=== PATIENT | female | born 1935 | race Two or more races ===

== ENCOUNTER 2021-10-21 14:28 | Inpatient (IN) | payer MEDICARE, BC ==
[~2021-10-21] VITALS: Ht 165.1 cm; Wt 53.5 kg
--- NOTE | 2021-10-21 14:40 | NUR ---
PT ANGELIKA FROM HOME TO ER BED 01. PER EMS, CALLED BECAUSE HE NO LONGER CAN TAKE CARE OF THE PATIENT. STATES PATIENT PROGRESSIVELY GETTING WORST AND WEAK AND NOT ABLE TO EAT ANYTING AND IS NOT GETTING OUT OF BED. PT GOWNED AND PLACED ON MONITOR. STABLE VITALS, AFEBRILE. AWAITING MD LIRIANO.
--- NOTE | 2021-10-21 14:41 | NUR ---
DR BROWNING AT BEDSIDE FOR EVAL.
[2021-10-21] MEDS ORDERED: IV NS 0.9% 1,000 ML BAG IV ONE (15:00)
--- NOTE | 2021-10-21 15:22 | NUR ---
IV LINE STARTED BLOOD DRAWN AND SENT TO LAB.
[2021-10-21 15:26] LABS: BASOPHILS % (AUTO) 0.2 % (0.0-2.0); EOSINOPHILS % (AUTO) 0.5 % (0.0-6.0); HEMATOCRIT 29 % (33-45); HEMOGLOBIN 9.7 g/dL (11.5-14.8); LYMPHOCYTES % (AUTO) 9.1 % (20.0-44.0); MEAN CORPUSCULAR HGB CONC 34 g/dl (31.0-36.0); MEAN CORPUSCULAR VOLUME 97 fL (82-100); MONOCYTES # (AUTO) 0.8 K/uL (0.1-1.30); MONOCYTES % (AUTO) 7.4 % (2.0-12.0); NEUTROPHILS # (AUTO) 8.8 K/uL (1.8-8.9); NEUTROPHILS % (AUTO) 82.8 % (43.0-81.0); PLATELET COUNT (AUTO) 95 K/uL (150-450); RED BLOOD CELL COUNT(AUTO) 2.99 MIL/uL (4.0-5.2); WHITE BLOOD COUNT (AUTO) 10.6 K/uL (4.3-11.0)
--- NOTE | 2021-10-21 15:29 | NUR ---
RADIOLOGY AT BEDSIDE FOR CHEST XRAY
[2021-10-21 15:50] LABS: CALCIUM, SERUM 8.3 mg/dL (8.5-10.1); CARBON DIOXIDE 19 mmol/L (21-32); CHLORIDE 112 mmol/L (98-107); CREATININE 1.7 mg/dL (0.6-1.3); GLUCOSE 81 mg/dL (74-106); POTASSIUM 4.6 mmol/L (3.5-5.1); SODIUM SERUM 142 mmol/L (136-145); UREA NITROGEN, BLOOD 33 mg/dL (7-18)
[2021-10-21 15:51] LABS: BILIRUBIN,URINE Negative (NEGATIVE); COLOR,URINE YELLOW (YELLOW); LEUKOCYTE ESTERASE ,URINE Negative (NEGATIVE); NITRITE, URINE Negative (NEGATIVE); PROTEIN,URINE Trace mg/dl (NEGATIVE); UGLUCOSE Negative (NEGATIVE); UROBILINOGEN,URINE 0.2 EU/dL (0.2)
[2021-10-21] MEDS ORDERED: AMLO2.5T2 PO (15:53)
[2021-10-21] MEDS ORDERED: LEVO50TA8 PO (15:53)
[2021-10-21] MEDS ORDERED: ATOR10TA PO (15:53)
[2021-10-21] MEDS ORDERED: DONE5TAB7 PO (15:53)
[2021-10-21 15:55] LABS: ALANINE AMINOTRANSFERASE 43 U/L (12-78); ALBUMIN 2.5 g/dL (3.4-5.0); ALKALINE PHOSPHATASE 88 U/L (46-116); ASPARTATE AMINOTRANSFERASE 60 U/L (15-37); BILIRUBIN,DIRECT 0.1 mg/dL (0.0-0.2); BILIRUBIN,TOTAL 0.1 mg/dL (0.2-1.0); TOTAL PROTEIN, SERUM 5.6 g/dL (6.4-8.2)
[2021-10-21 15:57] LABS: BACTERIA,URINE Rare /HPF (None Seen); SQUAMOUS EPITHELIAL CELL,UR Few /HPF (None Seen); WBC,URINE NONE SEEN /HPF (0-3)
[2021-10-21 16:26] LABS: LYMPHOCYTES % (MANUAL) 10 % (16-48); MONOCYTES % (MANUAL) 6 % (0-11.0); NEUTROPHILS % (MANUAL) 84 (42-76)
--- NOTE | 2021-10-21 16:56 | NUR ---
[facility] CALLED SUPERVISOR SALVAGE PAGED.
[2021-10-21] MEDS ORDERED: ASPI-1169 PO (17:00)
[2021-10-21] MEDS ORDERED: OLME20TA13 PO (17:00)
[2021-10-21] MEDS ORDERED: VIT1CAPS44 PO (17:00)
[2021-10-21] MEDS ORDERED: OMEG-167 PO (17:00)
[2021-10-21] MEDS ORDERED: FOLI0.8C PO (17:00)
[2021-10-21] MEDS ORDERED: ASCO-352 PO (17:00)
--- NOTE | 2021-10-21 19:26 | NUR ---
MS BED: 328-1
--- NOTE | 2021-10-21 19:46 | NUR ---
report given to teresa Santoro).
[2021-10-21 20:50] VITALS: BP 122/68
--- NOTE | 2021-10-21 20:50 | NUR ---
RN ADMITTING NOTE PATIENT IS A/O X 2-3, TO PERSON, PLACE, SITUATION, WITH PERIODS OF CONFUSION AND FORGETFULNESS. NEEDS REMINDERS AND REORIENTATION AT TIMES. PATIENT HAS HX OF DEMENTIA. PATIENT HAS MODERATE WEAKNESS ON BOTH UPPER AND LOWER EXTREMITIES UPON ASSESSMENT, PT STATES THAT SHE WALKS WITH HER AT HOME. PATIENT IS STABLE ON RA, TOLERATING WELL. PATIENT STATES HER BIRTHDAY IS [birth year], ID STATES 1935. WILL CONFIRM WITH . HX, ADMISSION INFO, AND HOME MEDS OBTAINED FROM [facility]. CONFIRMED PT'S BIRTHDAY. PATIENT DOES NOT REPORT ANY PAIN AT THIS TIME. SKIN ASSESSMENT COMPLETED AND DOCUMENTED. PATIENT HAS A LAC 20 G, PATENT AND INTACT. ORIENTED PATIENT TO ROOM, RN, AND STEAM POWER PLANT OPERATOR. SAFETY MEASURES IN PLACE: BED LOCKED AND IN LOWEST POSITION, CALL LIGHT WITHIN REACH, SIDE RAILS UP. WILL MONITOR PATIENT CLOSELY. [facility] HUIZAR () >PHONE: [phone]//HOME PHONE: [phone]
[2021-10-21] MEDS ORDERED: MAGNESIUM HYDROXIDE 30 ML UDC PO PRN (22:00)
[2021-10-21] MEDS ORDERED: ONDANSETRON HCL/PF 4 MG/2 ML VIAL IVP PRN (22:00)
[2021-10-21] MEDS: ENOXAPARIN SODIUM 30 MG/0.3 ML DISP.SYRIN SQ SCH (23:04)
--- NOTE | 2021-10-22 06:50 | NUR ---
RN CLOSING NOTE PATIENT A/O X 1 AT THIS TIME. PATIENT HAS HX DEMENTIA. PATIENT IS NOT OBSERVED AND DOES NOT REPORT TO BE IN ANY PAIN. PATIENT IS ON RA, TOLERATING WELL. PATIENT HAS A LAC 20G SALINE LOCKED ONLY. PATIENT PASSED NURSING SWALLOW EVAL COMPLETED UPON ADMISSION. SAFETY MEASURES IMPLEMENTED. ALL NEEDS MET AND ATTENDED. ALL ORDERS CARRIED OUT. WILL ENDORSE TO DAY SHIFT NURSE FOR SEMAJ.
[2021-10-22 07:19] LABS: BASOPHILS % (AUTO) 0.2 % (0.0-2.0); EOSINOPHILS % (AUTO) 0.5 % (0.0-6.0); HEMATOCRIT 26 % (33-45); LYMPHOCYTES % (AUTO) 10.5 % (20.0-44.0); MEAN CORPUSCULAR HGB CONC 35 g/dl (31.0-36.0); MEAN CORPUSCULAR VOLUME 97 fL (82-100); MONOCYTES # (AUTO) 0.9 K/uL (0.1-1.30); MONOCYTES % (AUTO) 9.5 % (2.0-12.0); NEUTROPHILS # (AUTO) 7.7 K/uL (1.8-8.9); NEUTROPHILS % (AUTO) 79.3 % (43.0-81.0); PLATELET COUNT (AUTO) 95 K/uL (150-450); RED BLOOD CELL COUNT(AUTO) 2.71 MIL/uL (4.0-5.2); WHITE BLOOD COUNT (AUTO) 9.7 K/uL (4.3-11.0)
[2021-10-22 07:34] LABS: CALCIUM, SERUM 7.9 mg/dL (8.5-10.1); CARBON DIOXIDE 16 mmol/L (21-32); CHLORIDE 113 mmol/L (98-107); CREATININE 1.6 mg/dL (0.6-1.3); GLUCOSE 58 mg/dL (74-106); MAGNESIUM 1.9 mg/dL (1.8-2.4); PHOSPHORUS 4.1 mg/dL (2.5-4.9); POTASSIUM 4.1 mmol/L (3.5-5.1); SODIUM SERUM 140 mmol/L (136-145); UREA NITROGEN, BLOOD 29 mg/dL (7-18)
[2021-10-22 07:45] LABS: CHOLESTEROL 86 mg/dL (<200); HDL CHOLESTEROL 34 mg/dL (40-60); LDL 41 mg/dL (0-99); TRIGLYCERIDES 33 mg/dL (30-150)
[2021-10-22] MEDS ORDERED: VITA1TAB56 PO (07:46)
[2021-10-22] MEDS ORDERED: CHOL100062 PO (07:46)
--- NOTE | 2021-10-22 07:46 | NUR ---
MS RN OPENING NOTES RECEIVED PATIENT IN BED, AWAKE, A/O X1. PATIENT ON ROOM AIR; BREATHING EVEN AND UNLABORED; NO SOB NOTED. NO COMPLAINS OF PAIN AT THIS TIME. IV ACCESS AT LAC G #20 SL. SAFETY PRECAUTIONS IN PLACE; BED IN LOW POSITION AND LOCKED, RAILS UP X2, CALL LIGHT WITHIN REACH. WILL CONTINUE TO MONITOR PATIENT.
--- NOTE | 2021-10-22 07:48 | NUR ---
MS RN NOTES ACCORDING TO AM LABS PATIENT WITH LOW GLUCOSE LEVEL. ACCU-CHECK DONE TO VERIFY; BS 59. FED PATIENT BREAKFAST AND GAVE SOME ORANGE JUICE. WILL RECHECK LATER.
[2021-10-22 08:00] VITALS: BP 133/66
--- NOTE | 2021-10-22 08:35 | NUR ---
MS RN NOTES ACCU-CHECK DONE; BS 85
--- NOTE | 2021-10-22 09:09 | NUR ---
WOUND CARE CONSULT: PT REFUSED SKIN ASSESSMENT. RECOMMENDATIONS MADE FOR SKIN PROTECTION. DISCUSSED WITH NURSING STAFF. PT IS ON [facility] LOW AIRLOSS BED. MD IN AGREEMENT WITH PLAN OF CARE.
[2021-10-22] MEDS ORDERED: Z GUARD REMEDY 2 OZ OINT TP PRN (09:30)
[2021-10-22] MEDS: Z GUARD REMEDY 2 OZ OINT TP SCH (09:40)
--- NOTE | 2021-10-22 13:44 | NUR ---
MS RN NOTES DVT PUMPS APPLIED
[2021-10-22 16:00] VITALS: BP 121/54
[2021-10-22] MEDS ORDERED: IV NS 0.9% 1,000 ML IV SCH (16:30)
[2021-10-22] MEDS: IV D5/ 0.9% NACL 1,000 ML IV PRN (17:29)
--- NOTE | 2021-10-22 18:48 | NUR ---
MS RN CLOSING NOTES PATIENT REMAINS IN BED, AWAKE, A/O X1. PATIENT ON ROOM AIR; BREATHING EVEN AND UNLABORED; NO SOB NOTED. NO COMPLAINS OF PAIN DURING SHIFT. IV ACCESS AT LAC G #20 RUNNING D5 NS @ 75 MLS/HR. ALL NEEDS ATTENDED DURING THE DAY. SAFETY PRECAUTIONS IN PLACE; BED IN LOW POSITION AND LOCKED, RAILS UP X2, CALL LIGHT WITHIN REACH. WILL ENDORSE TO MOUNTER SMOKING PIPE NURSE FOR SEMAJ.
--- NOTE | 2021-10-22 19:30 | NUR ---
RN CLOSING NOTE PATIENT A/O X 2 AT THIS TIME. PATIENT HAS HX DEMENTIA. PATIENT ABLE TO ANSWER WITH YES OR NO AND ABLE TO FOLLOW SIMPLE COMMANDS. PATIENT IS NOT OBSERVED AND DOES NOT REPORT TO BE IN ANY PAIN. PATIENT IS ON RA, TOLERATING WELL, NOT IN ANY APPARENT DISTRESS, NO SOB. PATIENT HAS A LAC 20G WITH D5 NS RUNNING AT 100 ML/HR. HOB ELEVATED FOR ASPIRATION PRECAUTION. SAFETY MEASURES IN PLACE: ALL NEEDS MET AND ATTENDED, ALL ORDERS CARRIED OUT. WILL MONITOR PATIENT CLOSELY. Addendum: 10/22/21 at 2301 by LEXII BELLAMY RN OPENING NOTE
[2021-10-22 20:00] VITALS: BP 118/70
[2021-10-22] MEDS: ENOXAPARIN SODIUM 30 MG/0.3 ML DISP.SYRIN SQ SCH (21:21)
--- NOTE | 2021-10-22 23:01 | NUR ---
[facility] TREASURER NOTE CARE OF PT TRANSFERRED TO NOVEM RN. PATIENT STABLE, NOT IN ANY APPARENT DISTRESS.
[2021-10-23] MEDS: IV D5/ 0.9% NACL 1,000 ML IV PRN ×2 (04:48→22:36)
--- NOTE | 2021-10-23 06:23 | NUR ---
RN CLOSING NOTE PATIENT IN BED ASLEEP. AROUSES EASILY. PATIENT IS ALERT AND ORIENTED X2. IN NO APPARENT DISTRESS NOTED. PATIENT IS ABLE TO FOLLOW SIMPLE COMMANDS. ON ROOM AIR TOLERATING WELL. NO COMPLAINTS OF PAIN OR DISCOMFORT AT THIS TIME. IV ACCESS ON LAC 20G WITH D5 NS RUNNING AT 100 ML/HR. HOB ELEVATED FOR ASPIRATION PRECAUTIONS. SAFETY MEASURES IN PLACE. ALL NEEDS MET AND ATTENDED. WILL ENDORSE TO AM SHIFT NURSE FOR CONTINUITY OF CARE.
[2021-10-23 06:53] LABS: BASOPHILS % (AUTO) 0.2 % (0.0-2.0); EOSINOPHILS % (AUTO) 0.5 % (0.0-6.0); HEMATOCRIT 27 % (33-45); HEMOGLOBIN 8.9 g/dL (11.5-14.8); LYMPHOCYTES % (AUTO) 10.2 % (20.0-44.0); MEAN CORPUSCULAR HGB CONC 34 g/dl (31.0-36.0); MEAN CORPUSCULAR VOLUME 98 fL (82-100); MONOCYTES # (AUTO) 1.5 K/uL (0.1-1.30); MONOCYTES % (AUTO) 14.8 % (2.0-12.0); NEUTROPHILS # (AUTO) 7.6 K/uL (1.8-8.9); NEUTROPHILS % (AUTO) 74.3 % (43.0-81.0); PLATELET COUNT (AUTO) 105 K/uL (150-450); RED BLOOD CELL COUNT(AUTO) 2.71 MIL/uL (4.0-5.2); WHITE BLOOD COUNT (AUTO) 10.2 K/uL (4.3-11.0)
--- NOTE | 2021-10-23 07:30 | NUR ---
RN MS NOTES PT IN BED, ALERT TO SELF, WITH PERIODS OF CONFUSION, NO SIGN OF PAIN OR DISTRESS, CALL LIGHT WITHIN REACH, ASSISTED WITH MEALS, KEEP COMFORTABLE IN BED.
[2021-10-23 07:32] LABS: CALCIUM, SERUM 8.1 mg/dL (8.5-10.1); CARBON DIOXIDE 16 mmol/L (21-32); CHLORIDE 114 mmol/L (98-107); CREATININE 1.7 mg/dL (0.6-1.3); GLUCOSE 74 mg/dL (74-106); POTASSIUM 3.6 mmol/L (3.5-5.1); SODIUM SERUM 141 mmol/L (136-145); UREA NITROGEN, BLOOD 30 mg/dL (7-18)
[2021-10-23 08:00] VITALS: BP 124/97
[2021-10-23] MEDS: Z GUARD REMEDY 2 OZ OINT TP SCH (09:17)
--- NOTE | 2021-10-23 11:24 | NUR ---
RN MS NOTES PT SEEN AND EXAMINED BY DR. ZAVALA, PLAN OF CARE DISCUSSED BY AT BEDSIDE, IV FLUIDS INFUSING WELL, KEPT WARM AND COMFORTABLE.
[2021-10-23] MEDS: ENSURE ENLIVE 237 ML LIQUID (VANILLA) PO SCH ×2 (13:53→17:13)
[2021-10-23 16:00] VITALS: BP 118/64
[2021-10-23] MEDS: MULTIVITAMIN/LUTEIN/MINERALS 1 TAB PO SCH (17:04)
[2021-10-23] MEDS: DONEPEZIL 5 MG TABLET PO SCH (17:04)
[2021-10-23] MEDS: ASCORBIC ACID 500 MG TABLET PO SCH (17:04)
[2021-10-23] MEDS: ATORVASTATIN 10 MG TABLET PO SCH (17:04)
[2021-10-23] MEDS: VITAMIN B COMP W-C 1 TAB TABLET PO SCH (17:04)
--- NOTE | 2021-10-23 18:13 | NUR ---
RN MS NOTES PT IN BED, RESTING, ALERT TO SELF, WITH PERIODS OF CONFUSION AND BEING FORGETFUL, NEEDS ENCOURAGEMENT TO INCREASE PO INTAKE, ASSISTED WITH MEALS, STILL WITH POOR PO INTAKE, IV FLUIDS INFUSING WELL, CALL LIGHT WITHIN REACH, BOAZ INFORMED OF PLAN OF CARE, VERBALIZED UNDERSTANDING, PM MEDS GIVEN ORDERED, RECEIVED ORDER FROM DR. ZAVALA TO CHECK BLOOD SUGAR ACHS AND TO GIVE D50/50 IVP PRN. BS CHECKED, 68, PT ABLE TO SWALLOW A COUPLE OF SPOONS OF PUDDING AND A SIP OF ENSURE.
--- NOTE | 2021-10-23 19:40 | NUR ---
MS RN OPENING NOTE PATIENT SLEEPING IN BED BUT EASILY AWAKENED, ALERT/ORIENTED X 2 WITH PERIODS OF CONFUSION. PATIENT STABLE ON RA, NO S/S OF DISTRESS OR SOB NOTED, BREATHING EVEN AND UNLABORED. PT REPORTS ONLY MILD PAIN AT THIS TIME. IV ACCESS ON LEFT AC #20G INTACT AND RUNNING D5NS @ 90 ML/HR. WILL ENCOURAGE PO INTAKE DURING SHIFT. SAFETY MEASURES IN PLACE: CALL LIGHT WITHIN REACH, SIDE RAILS UP X 3, BED LOCKED IN LOW POSITION, HOB ELEVATED, BED ALARM ON. WILL CONTINUE TO MONITOR PATIENT
[2021-10-23 20:16] VITALS: BP 127/62
[2021-10-23] MEDS: BLOOD SUGAR DIAGNOSTIC 1 EACH STRIP IN SCH (21:33)
[2021-10-23] MEDS: MIRTAZAPINE 15 MG TABLET PO SCH (21:38)
[2021-10-23] MEDS: AMLODIPINE BESYLATE 5 MG TABLET PO SCH (21:38)
[2021-10-23] MEDS: ENOXAPARIN SODIUM 30 MG/0.3 ML DISP.SYRIN SQ SCH (21:38)
[2021-10-24] MEDS: BLOOD SUGAR DIAGNOSTIC 1 EACH STRIP IN SCH ×4 (06:49→23:13)
--- NOTE | 2021-10-24 06:59 | NUR ---
MS RN CLOSING NOTE PATIENT SLEEPING IN BED BUT EASILY AWAKENED, ALERT/ORIENTED X 2 WITH PERIODS OF CONFUSION. PATIENT STABLE ON RA, NO S/S OF DISTRESS OR SOB NOTED, BREATHING EVEN AND UNLABORED. PT REFUSED PO INTAKE, ONLY TOOK SMALL BITE OF PUDDING AND KEPT SHAKING HER HEAD NO. MEDICATIONS GIVEN ORDERED, PT NEEDS MET THROUGHOUT SHIFT. IV ACCESS ON LEFT AC #20G INTACT AND RUNNING D5NS @ 90 ML/HR. SAFETY MEASURES IN PLACE: CALL LIGHT WITHIN REACH, SIDE RAILS UP X 3, BED LOCKED IN LOW POSITION, HOB ELEVATED, BED ALARM ON. WILL ENDORSE TO DAY SHIFT NURSE FOR CONTINUITY OF CARE
[2021-10-24] MEDS: LEVOTHYROXINE SODIUM 88 MCG TABLET PO SCH (07:30)
--- NOTE | 2021-10-24 07:56 | NUR ---
RN note Patient received in bed, AO x 1-2, able to responds all stimuli. Skin is warm to touch, keep clean/dry. Patient does no c/o pain or discomfort at this time. Patient able to reposition self. Respiratory even and unlabored on room air, no SOB observed. Noted patient does not able to swallow due med this morning, will notify MD and place ST eval. Call light within reach, kept elevated HOB and lower bed position for safety. Will continue to monitor.
[2021-10-24] MEDS: ENSURE ENLIVE 237 ML LIQUID (VANILLA) PO SCH ×3 (08:00→17:27)
[2021-10-24 08:23] VITALS: BP 135/68
[2021-10-24 08:50] LABS: BASOPHILS % (AUTO) 0.3 % (0.0-2.0); EOSINOPHILS % (AUTO) 0.5 % (0.0-6.0); HEMATOCRIT 26 % (33-45); HEMOGLOBIN 8.7 g/dL (11.5-14.8); LYMPHOCYTES # (AUTO) 1.6 K/uL (0.8-4.8); LYMPHOCYTES % (AUTO) 14.9 % (20.0-44.0); MEAN CORPUSCULAR HGB CONC 33 g/dl (31.0-36.0); MEAN CORPUSCULAR VOLUME 98 fL (82-100); MONOCYTES # (AUTO) 2.5 K/uL (0.1-1.30); MONOCYTES % (AUTO) 23.8 % (2.0-12.0); NEUTROPHILS # (AUTO) 6.5 K/uL (1.8-8.9); NEUTROPHILS % (AUTO) 60.5 % (43.0-81.0); PLATELET COUNT (AUTO) 126 K/uL (150-450); RED BLOOD CELL COUNT(AUTO) 2.68 MIL/uL (4.0-5.2); WHITE BLOOD COUNT (AUTO) 10.7 K/uL (4.3-11.0)
--- NOTE | 2021-10-24 08:56 | NUR ---
Patient noticed difficulty swallow med, received order ST eval. Will continue to monitor for safety.
[2021-10-24] MEDS: FOLIC ACID 1 MG TABLET PO SCH (09:00)
[2021-10-24] MEDS ORDERED: Medication Not On Formulary EA (Omega-3 Fatty Acids/Fish Oil (Fish Oil 1,000 Mg Softgel) PO SCH (09:00)
[2021-10-24] MEDS: CHOLECALCIFEROL 1,000 UNIT TABLET (VIT D3) PO SCH (09:00)
[2021-10-24] MEDS: ASCORBIC ACID 500 MG TABLET PO SCH ×2 (09:00→16:47)
[2021-10-24] MEDS: ASPIRIN 81 MG TAB.CHEW PO SCH (09:00)
[2021-10-24] MEDS: Z GUARD REMEDY 2 OZ OINT TP SCH (09:00)
[2021-10-24] MEDS: MULTIVITAMIN/LUTEIN/MINERALS 1 TAB PO SCH ×2 (09:00→16:47)
[2021-10-24 10:05] LABS: CALCIUM, SERUM 7.5 mg/dL (8.5-10.1); CARBON DIOXIDE 16 mmol/L (21-32); CHLORIDE 119 mmol/L (98-107); CREATININE 1.6 mg/dL (0.6-1.3); GLUCOSE 62 mg/dL (74-106); POTASSIUM 4.1 mmol/L (3.5-5.1); SODIUM SERUM 146 mmol/L (136-145); UREA NITROGEN, BLOOD 27 mg/dL (7-18)
[2021-10-24] MEDS: ACETAMINOPHEN 325 MG TABLET PO PRN (10:32)
--- NOTE | 2021-10-24 11:00 | NUR ---
Patient done ST kiel and failed, will hold foods and meds for today. ST dyson will repeat tomorrow again.
--- NOTE | 2021-10-24 11:44 | NUR ---
does not feeling comfortable to d/c SNF due to patient's condition, informed MD regarding above.
[2021-10-24] MEDS ORDERED: DEXTROSE 50%-WATER 50 ML DISP.SYRIN ONE (12:29)
--- NOTE | 2021-10-24 12:38 | NUR ---
Patient lethargic condition, does not awake, and started npo. BS; 59mg/dl, administered Dextrose.
[2021-10-24] MEDS: IV D5/ 0.9% NACL 1,000 ML IV PRN (12:54)
[2021-10-24 16:26] VITALS: BP 124/52
[2021-10-24] MEDS: DONEPEZIL 5 MG TABLET PO SCH (17:26)
[2021-10-24] MEDS: VITAMIN B COMP W-C 1 TAB TABLET PO SCH (17:27)
[2021-10-24] MEDS: ATORVASTATIN 10 MG TABLET PO SCH (17:27)
--- NOTE | 2021-10-24 18:16 | NUR ---
RN Closing Note Patient resting in bed, AO x 1. Respiratory even and unabashed on room air. Does no appears pain or discomfort. Skin is warm to touch, keep clean/dry, intact new IV site on right forearm. The latest BS;75mg/dl, keep running D5 NS at 90ml. Kept elevated HOB for airway and lower position of the bed for safety. Call light within reach, all needs met. will endorse night custodian.
[2021-10-24 20:00] VITALS: BP 118/62
--- NOTE | 2021-10-24 20:29 | NUR ---
MS RN OPENING NOTE PATIENT SLEEPING IN BED, ONLY GROANS WHEN ATTEMPTED TO WAKE UP BUT DOESN'T OPEN EYES, ALERT/ORIENTED X 1. PATIENT APPEARS COMFORTABLE AND NO S/S OF PAIN, NO FACIAL GRIMACING OR RESTLESSNESS. PATIENT STABLE ON RA, NO S/S OF DISTRESS OR SOB NOTED, BREATHING EVEN AND UNLABORED. IV ACCESS ON RIGHT WRIST #24G INTACT AND RUNNING D5NS @ 90 ML/HR. PER DAY SHIFT NURSE, PT FAILED ST LIRIANO AND WILL BE NPO TODAY. SAFETY MEASURES IN PLACE: CALL LIGHT WITHIN REACH, SIDE RAILS UP X 3, BED LOCKED IN LOW POSITION, HOB ELEVATED, BED ALARM ON. WILL CONTINUE TO MONITOR PATIENT
[2021-10-24] MEDS ORDERED: DEXTROSE 50%-WATER 50 ML DISP.SYRIN IVP PRN (22:00)
[2021-10-24] MEDS: AMLODIPINE BESYLATE 5 MG TABLET PO SCH (22:00)
[2021-10-24] MEDS: MIRTAZAPINE 15 MG TABLET PO SCH (22:00)
[2021-10-24] MEDS: IV D5/0.45 NACL 1,000 ML IV SCH (23:10)
[2021-10-24] MEDS: ENOXAPARIN SODIUM 30 MG/0.3 ML DISP.SYRIN SQ SCH (23:14)
--- NOTE | 2021-10-25 02:09 | NUR ---
MS RN NOTE REASSESSED PATIENT'S BLOOD SUGAR, CURRENTLY 79. IVF D51/2 NS STILL RUNNING @ 70 ML/HR. PATIENT NPO D/T FAILING SWALLOW EVAL. PATIENT MORE ALERT NOW THAN EARLIER IN THE SHIFT. ASKED PATIENT IF SHE WAS IN PAIN AND SHE SAID NO, ASKED PATIENT IF SHE FELT OKAY AND SHE RESPONDED YES
[2021-10-25] MEDS: BLOOD SUGAR DIAGNOSTIC 1 EACH STRIP IN SCH ×4 (07:03→22:00)
[2021-10-25] MEDS: LEVOTHYROXINE SODIUM 88 MCG TABLET PO SCH (07:30)
--- NOTE | 2021-10-25 07:32 | NUR ---
RN Note Patient received in bed, AO x 1, able to responds all stimuli. Respiratory even and unlabored on room air, no SOB observed. Skin is warm to touch, keep clean/dry. Patient does no appears pain or discomfort this morning. BS 70mg/dl this morning also. Call light within reach, kept elevated HOB and lower bed position for safety. Will continue to monitor.
--- NOTE | 2021-10-25 07:34 | NUR ---
MS RN OPENING NOTE PATIENT SLEEPING IN BED, ALERT/ORIENTED X 1, PT MORE ALERT AND ANSWERING YES/NO QUESTIONS. PATIENT APPEARS COMFORTABLE AND NO S/S OF PAIN, NO FACIAL GRIMACING OR RESTLESSNESS. PATIENT STABLE ON RA, NO S/S OF DISTRESS OR SOB NOTED, BREATHING EVEN AND UNLABORED. IV ACCESS ON RIGHT WRIST #24G INTACT AND RUNNING D5 1/2NS @ 70 ML/HR. PATIENT KEPT NPO. NO SIGNIFICANT CHANGES THROUGHOUT SHIFT. SAFETY MEASURES IN PLACE: CALL LIGHT WITHIN REACH, SIDE RAILS UP X 3, BED LOCKED IN LOW POSITION, HOB ELEVATED, BED ALARM ON. ENDORSED TO DAY SHIFT NURSE FOR CONTINUITY OF CARE
[2021-10-25 07:58] LABS: BASOPHILS % (AUTO) 0.5 % (0.0-2.0); EOSINOPHILS % (AUTO) 1.6 % (0.0-6.0); HEMATOCRIT 25 % (33-45); LYMPHOCYTES # (AUTO) 1.3 K/uL (0.8-4.8); LYMPHOCYTES % (AUTO) 15.2 % (20.0-44.0); MEAN CORPUSCULAR HGB CONC 33 g/dl (31.0-36.0); MEAN CORPUSCULAR VOLUME 98 fL (82-100); MONOCYTES # (AUTO) 1.6 K/uL (0.1-1.30); MONOCYTES % (AUTO) 18.6 % (2.0-12.0); NEUTROPHILS # (AUTO) 5.6 K/uL (1.8-8.9); NEUTROPHILS % (AUTO) 64.1 % (43.0-81.0); PLATELET COUNT (AUTO) 140 K/uL (150-450); WHITE BLOOD COUNT (AUTO) 8.7 K/uL (4.3-11.0)
[2021-10-25] MEDS: ENSURE ENLIVE 237 ML LIQUID (VANILLA) PO SCH ×3 (08:00→17:09)
[2021-10-25 08:04] LABS: CARBON DIOXIDE 16 mmol/L (21-32); CHLORIDE 118 mmol/L (98-107); CREATININE 1.7 mg/dL (0.6-1.3); GLUCOSE 83 mg/dL (74-106); POTASSIUM 3.4 mmol/L (3.5-5.1); SODIUM SERUM 144 mmol/L (136-145); UREA NITROGEN, BLOOD 27 mg/dL (7-18)
[2021-10-25 08:22] VITALS: BP 146/81
[2021-10-25] MEDS: ASCORBIC ACID 500 MG TABLET PO SCH ×2 (09:00→17:08)
[2021-10-25] MEDS: FOLIC ACID 1 MG TABLET PO SCH (09:00)
[2021-10-25] MEDS: MULTIVITAMIN/LUTEIN/MINERALS 1 TAB PO SCH ×2 (09:00→17:08)
[2021-10-25] MEDS: ASPIRIN 81 MG TAB.CHEW PO SCH (09:00)
[2021-10-25] MEDS: CHOLECALCIFEROL 1,000 UNIT TABLET (VIT D3) PO SCH (09:00)
[2021-10-25] MEDS: IV D5/0.45 NACL 1,000 ML IV SCH (09:12)
[2021-10-25] MEDS: Z GUARD REMEDY 2 OZ OINT TP SCH (09:21)
[2021-10-25] MEDS ORDERED: POTASSIUM CHLORIDE 20 MEQ TAB.PRT.SR PO SCH (11:00)
[2021-10-25 11:04] LABS: EOSINOPHILS % (MANUAL) 1 % (0-4); LYMPHOCYTES % (MANUAL) 13 % (16-48); MONOCYTES % (MANUAL) 14 % (0-11.0); NEUTROPHILS % (MANUAL) 72 (42-76)
[2021-10-25] MEDS ORDERED: JEVITY 1.2 CAL 1,000 ML BOTTLE GT PRN (11:30)
--- NOTE | 2021-10-25 12:00 | NUR ---
Patient failed ST eval today, new order NG tube. Conformed NG tube placement by chest xray. Patient has on left nare 16 fr. Kept elevated HOB for aspiration precaution. Will continue to monitor closely.
[2021-10-25] MEDS ORDERED: POTASSIUM CHLORIDE 20 MEQ POWDER PACKET GT SCH (14:00)
--- NOTE | 2021-10-25 14:29 | NUR ---
potassium given at 1400 via NG tube.
[2021-10-25 16:22] VITALS: BP 137/62
[2021-10-25] MEDS: DORZOLAMIDE OPTH 2% 10 ML BOTTLE EACHEYE SCH (17:08)
[2021-10-25] MEDS: VITAMIN B COMP W-C 1 TAB TABLET PO SCH (17:08)
[2021-10-25] MEDS: DONEPEZIL 5 MG TABLET PO SCH (17:08)
[2021-10-25] MEDS: ATORVASTATIN 10 MG TABLET PO SCH (17:08)
--- NOTE | 2021-10-25 17:56 | NUR ---
RN Closing Note Patient resting in bed, AO x 1. Respiratory even and unlabored on room air. Does no appears pain or discomfort. Skin is warm to touch, keep clean/dry, intact new IV site on right forearm. The latest BS;75mg/dl, keep running D5 NS at 70ml, tube feeding at 30cc currently and patient tolerated. Kept elevated HOB for airway and lower position of the bed for safety. Call light within reach, all needs met. will endorse night shift manager.
[2021-10-25 20:00] VITALS: BP 131/60
--- NOTE | 2021-10-25 20:31 | NUR ---
MS RN OPENING NOTES: RECEIVED PATIENT SLEEP IN BED COMFORTABLY, BED IN LOW POSITION, CALL LIGHTS WITHIN REACH, NO COMPLAIN OF PAIN AND DISCOMFORT AT THIS TIME, A/O X1 INCONTINENT, NGT TUBE JEVITY 1.2 AT 45ML CC PER HOUR, , I WITH IV LINE AT RT WRIST #24 D5 1/2 NSS@70ML PER HOUR INFUSING WELL. PATIENT HOB AT 45 DEGREE, PATIENT KEPT CLEAN AND DRY ALL NEEDS MET, WILL CONTINUE TO MONITOR.
[2021-10-25] MEDS: ENOXAPARIN SODIUM 30 MG/0.3 ML DISP.SYRIN SQ SCH (21:58)
[2021-10-25] MEDS: MIRTAZAPINE 15 MG TABLET PO SCH (22:39)
[2021-10-25] MEDS: AMLODIPINE BESYLATE 5 MG TABLET PO SCH (22:39)
--- NOTE | 2021-10-25 22:46 | NUR ---
RN NOTES: BS-[id number] - OUT OF PARANETER NO INSULIN GIVEN PER SLIDING SCALE
[2021-10-26] MEDS: SODIUM BICARBONATE 650 MG TABLET PEG SCH ×3 (00:42→17:00)
[2021-10-26] MEDS: IV D5/0.45 NACL 1,000 ML IV SCH (01:49)
--- NOTE | 2021-10-26 07:00 | NUR ---
RN NOTES: SPOKE TO BOAZ HUIZAR, OF PATIENT SAVI HUIZAR BECAUSE OF THE POSSIBLE ESOPHAGOGASTRODUODENOSCOPY (EGD AND ASKED FOR A CONSENT ON THE PROCEDURE, CONSENT FOR ANESTHESIA, CONSENT FOR BLOOD TRANSFUSION IF NEEDED AND HE GAVE AN APPROVAL OF THE CONSENT, HE SPOKE TO JO ANN MOYER WITNESS, PAPERS ARE SIGNED AND ENDORSE TO INCOMING NURSE
--- NOTE | 2021-10-26 07:35 | NUR ---
MS RN OPENING NOTES PATIENT ASLEEP IN BED, NO SIGNS OF ACUTE DISTRESS NOTED. ON ROOM AIR, TOLERATING WELL., NO SOB NOTED. NO S/SX OF PAIN AND DISCOMFORT AT THIS TIME. PATIENT ON NPO, DUE TO EGD SCHEDULE. WITH IV ACCESS ON R WRIST#24 INTACT, WITH ONGOING D5 1/2 NS @70ML/HR INFUSING WELL. ASPIRATION PRECAUTION OBSERVED, HOB ELEVATED AT 45 DEGREE. WILL CONTINUE TO MONITOR PATIENT.
[2021-10-26] MEDS: BLOOD SUGAR DIAGNOSTIC 1 EACH STRIP IN SCH ×4 (07:38→21:39)
--- NOTE | 2021-10-26 07:44 | NUR ---
RN CLOSING NOTES: PATIENT SLEEP IN BED COMFORTABLY, BED IN LOW POSITION, CALL LIGHTS WITHIN REACH, NO COMPLAIN OF PAIN AND DISCOMFORT AT THIS TIME, PATIENT ON NPO, DUE TO EGD SCHEDULE ON ROOM AIR, NO RESP DISTRESS WAS OBSERVED, WITH IV LINE AT L WRIST#24 WITH ONGOING D5 1/2 NSS@70ML/HR INFUSING WELL, HOB AT 45 DEGREE, PATIENT KEPT CLEAN AND DRY, ALL NEEDS MET ENDORSE TO INCOMING SHIFT.:
[2021-10-26] MEDS: ENSURE ENLIVE 237 ML LIQUID (VANILLA) PO SCH ×3 (08:00→18:00)
[2021-10-26] MEDS: MULTIVITAMIN/LUTEIN/MINERALS 1 TAB PO SCH ×2 (08:09→17:00)
[2021-10-26] MEDS: LEVOTHYROXINE SODIUM 88 MCG TABLET PO SCH (08:09)
[2021-10-26] MEDS: FOLIC ACID 1 MG TABLET PO SCH (08:09)
[2021-10-26] MEDS: CHOLECALCIFEROL 1,000 UNIT TABLET (VIT D3) PO SCH (08:09)
[2021-10-26] MEDS: ASCORBIC ACID 500 MG TABLET PO SCH ×2 (08:12→17:00)
[2021-10-26 08:53] LABS: BASOPHILS # (AUTO) 0.1 K/uL (0.0-0.2); BASOPHILS % (AUTO) 0.8 % (0.0-2.0); EOSINOPHILS % (AUTO) 3.1 % (0.0-6.0); HEMATOCRIT 27 % (33-45); HEMOGLOBIN 8.5 g/dL (11.5-14.8); LYMPHOCYTES # (AUTO) 1.4 K/uL (0.8-4.8); LYMPHOCYTES % (AUTO) 16.7 % (20.0-44.0); MEAN CORPUSCULAR HGB CONC 32 g/dl (31.0-36.0); MEAN CORPUSCULAR VOLUME 104 fL (82-100); MONOCYTES # (AUTO) 1.2 K/uL (0.1-1.30); MONOCYTES % (AUTO) 14.5 % (2.0-12.0); NEUTROPHILS # (AUTO) 5.6 K/uL (1.8-8.9); NEUTROPHILS % (AUTO) 64.9 % (43.0-81.0); PLATELET COUNT (AUTO) 189 K/uL (150-450); RED BLOOD CELL COUNT(AUTO) 2.56 MIL/uL (4.0-5.2); WHITE BLOOD COUNT (AUTO) 8.6 K/uL (4.3-11.0)
[2021-10-26] MEDS: ASPIRIN 81 MG TAB.CHEW PO SCH (09:00)
[2021-10-26] MEDS: DORZOLAMIDE OPTH 2% 10 ML BOTTLE EACHEYE SCH ×2 (09:19→17:11)
[2021-10-26] MEDS: Z GUARD REMEDY 2 OZ OINT TP SCH (09:28)
[2021-10-26 10:19] LABS: CALCIUM, SERUM 7.7 mg/dL (8.5-10.1); CARBON DIOXIDE 14 mmol/L (21-32); CHLORIDE 119 mmol/L (98-107); CREATININE 1.5 mg/dL (0.6-1.3); GLUCOSE 93 mg/dL (74-106); POTASSIUM 3.8 mmol/L (3.5-5.1); SODIUM SERUM 145 mmol/L (136-145); UREA NITROGEN, BLOOD 25 mg/dL (7-18)
[2021-10-26 10:20] VITALS: BP 147/64
--- NOTE | 2021-10-26 14:45 | NUR ---
RN NOTES PT P/U BY OR NURSE MAGEN FOR EGD/PEG PLACEMENT. IN STABLE CONDITION.
[2021-10-26] MEDS ORDERED: Sodium Bicarbonate 100 MEQ in IV D5 / 0.2% NACL 1,000 ML IV ONE (15:00)
--- NOTE | 2021-10-26 15:51 | NUR ---
RN NOTES PT BACK FROM RECOVERY ROOM, TRANSPORTED BY JOÃO JON. S/P PEG PLACEMENT, PT IN STABLE CONDITION. RECEIVED A CALL FROM DR. DURAN WITH ORDER FOR CT ABDOMEN AND EPLVIS, PER MD DO NOT USE PEG YET UNTIL CT RESULT.
--- NOTE | 2021-10-26 17:09 | NUR ---
RN NOTES MEDICATIONS NOT GIVEN, AWAITING FOR CT ABDOMEN PELVIS TO BE DONE FOR PEG PLACEMENT CONFIRMATION.
--- NOTE | 2021-10-26 17:10 | NUR ---
RN NOTES PT P/U FOR CT OF ABDOMEN PELVIS, IN STABLE CONDITION.
--- NOTE | 2021-10-26 17:30 | NUR ---
RN NOTES PT BACK FROM CT ABDOMEN PELVIS.
[2021-10-26] MEDS: DONEPEZIL 5 MG TABLET PO SCH (18:00)
[2021-10-26] MEDS: ATORVASTATIN 10 MG TABLET PO SCH (18:00)
[2021-10-26] MEDS: VITAMIN B COMP W-C 1 TAB TABLET PO SCH (18:00)
--- NOTE | 2021-10-26 19:00 | NUR ---
MS RN OPENING NOTES PATIENT ASLEEP IN BED, NO SIGNS OF ACUTE DISTRESS NOTED. ON ROOM AIR, TOLERATING WELL. NO SOB NOTED. NO S/SX OF PAIN AND DISCOMFORT AT THIS TIME. PATIENT ON NPO, AWAITING CT SCAN RESULTS. S/P PEG PLACEMENT. WITH IV ACCESS ON R WRIST#24 INTACT, WITH ONGOING SODIUM BICARBONATE 100 MEQ IN D5 1/4 NS @70ML/HR INFUSING WELL. ASPIRATION PRECAUTION OBSERVED, HOB ELEVATED AT ALL TIMES. TURNED AND REPOSITIONE. WILL ENDORSE TO NEXT SHIFT. Addendum: 10/26/21 at 1909 by JANI VEGA RN *CLOSING NOTES
--- NOTE | 2021-10-26 19:45 | NUR ---
MS RN NOTES RECEIVED ON BED, ON LEFT SIDE POSITION,S/P PEG PLACEMENT,AWAITING FOR CT ABDOMEN AND PELVIS RESULT BEFORE PEG USAGE.FAMILY MEMBER AT BEDSIDE.IVF NS AT 70ML/HR RATE IN PROGRESS VIA IV PUMP.WILL CONTINUE TO MONITOR STATUS.
[2021-10-26 20:00] VITALS: BP 132/70
--- NOTE | 2021-10-26 21:00 | NUR ---
MS RN NOTES CT ABDOMEN PELVIS RESULTED,RELAYED TO GI DOCTOR DR DURAN,WITH ORDER OKAY TO USE PEG FOR FEEDING AND MEDS.
[2021-10-26] MEDS: ENOXAPARIN SODIUM 30 MG/0.3 ML DISP.SYRIN SQ SCH ×2 (21:14→21:39)
[2021-10-26] MEDS: AMLODIPINE BESYLATE 5 MG TABLET PO SCH (21:39)
[2021-10-26] MEDS: MIRTAZAPINE 15 MG TABLET PO SCH (21:39)
--- NOTE | 2021-10-26 22:00 | NUR ---
MS RN NOTES GT FEEDING OF JEVITY 1/2 % RESTARTED AT 30ML/HR RATE.WILL MONITOR FOR RESIDUAL.HOB ELEVATED FOR ASPIRATION PRECAUTION
--- NOTE | 2021-10-26 22:00 | NUR ---
MS RN NOTES ACCU-CHECK BLOOD SUGAR CHECK 78,NO INSULIN COVERAGE.
--- NOTE | 2021-10-27 01:00 | NUR ---
MS RN NOTES GT FEEDING IN PROGRESS.NO RESIDUAL VOLUME NOTED.
[2021-10-27] MEDS: BLOOD SUGAR DIAGNOSTIC 1 EACH STRIP IN SCH ×4 (05:38→22:32)
--- NOTE | 2021-10-27 06:00 | NUR ---
MS RN NOTES VOMITED MODERATE AMOUNT OF VOMITUS,MOSTLY LIQUID AND GREENISH COLOR
--- NOTE | 2021-10-27 06:00 | NUR ---
MS RN NOTES ACCU-CHECK BLOOD SUGAR CHECK 147,NO INSULIN COVERAGE.
--- NOTE | 2021-10-27 06:02 | NUR ---
MS MOYER NOTES ZOFRAN 4MG IC GIVEN ORDERED FOR VOMITING. Addendum: 10/27/21 at 0619 by AYANA HUNT RN NAYELI IV
--- NOTE | 2021-10-27 07:55 | NUR ---
MS RN OPENING NOTE Patient in bed, asleep. A/O x 1. On O2 at 2 LPM via NC, breathing evenly and unlabored. No SOB or s/s of distress noted. IV access on Right wrist #24G infusing D5 1/4 + NaCO3 at 70 ml/hr. GT in place with Jevity 1.2 at 30ml/hr feeding. Safety precautions in place: bed in low, locked position; siderails up x 2; call light within reach. Will continue to monitor.
[2021-10-27 08:00] VITALS: BP 134/46
[2021-10-27] MEDS: ENSURE ENLIVE 237 ML LIQUID (VANILLA) PO SCH ×3 (08:00→18:35)
--- NOTE | 2021-10-27 09:00 | NUR ---
RN NOTE Patient is on GT feeding, Ensure not given.
[2021-10-27 09:21] LABS: BASOPHILS % (AUTO) 0.2 % (0.0-2.0); HEMATOCRIT 28 % (33-45); HEMOGLOBIN 9.1 g/dL (11.5-14.8); LYMPHOCYTES % (AUTO) 6.6 % (20.0-44.0); MEAN CORPUSCULAR HGB CONC 32 g/dl (31.0-36.0); MEAN CORPUSCULAR VOLUME 98 fL (82-100); MONOCYTES # (AUTO) 0.9 K/uL (0.1-1.30); MONOCYTES % (AUTO) 5.8 % (2.0-12.0); NEUTROPHILS # (AUTO) 12.8 K/uL (1.8-8.9); NEUTROPHILS % (AUTO) 87.4 % (43.0-81.0); PLATELET COUNT (AUTO) 230 K/uL (150-450); RED BLOOD CELL COUNT(AUTO) 2.87 MIL/uL (4.0-5.2); WHITE BLOOD COUNT (AUTO) 14.6 K/uL (4.3-11.0)
[2021-10-27] MEDS: CHOLECALCIFEROL 1,000 UNIT TABLET (VIT D3) PO SCH (09:36)
[2021-10-27] MEDS: LEVOTHYROXINE SODIUM 88 MCG TABLET PO SCH (09:36)
[2021-10-27] MEDS: ASCORBIC ACID 500 MG TABLET PO SCH ×2 (09:36→18:34)
[2021-10-27] MEDS: ASPIRIN 81 MG TAB.CHEW PO SCH (09:36)
[2021-10-27] MEDS: MULTIVITAMIN/LUTEIN/MINERALS 1 TAB PO SCH ×2 (09:36→18:34)
[2021-10-27] MEDS: FOLIC ACID 1 MG TABLET PO SCH (09:36)
[2021-10-27] MEDS: SODIUM BICARBONATE 650 MG TABLET PEG SCH ×2 (09:36→18:34)
[2021-10-27] MEDS ORDERED: LACT-209 GT (10:22)
[2021-10-27] MEDS ORDERED: SODI650T PEG (10:22)
[2021-10-27] MEDS: Z GUARD REMEDY 2 OZ OINT TP SCH (10:31)
[2021-10-27] MEDS: DORZOLAMIDE OPTH 2% 10 ML BOTTLE EACHEYE SCH ×2 (10:33→17:00)
--- NOTE | 2021-10-27 13:21 | NUR ---
RN NOTE Patient is on GT feeding, Ensure not given. Dietary aware.
[2021-10-27 16:00] VITALS: BP 138/56
[2021-10-27] MEDS: DONEPEZIL 5 MG TABLET PO SCH (18:34)
[2021-10-27] MEDS: ATORVASTATIN 10 MG TABLET PO SCH (18:34)
[2021-10-27] MEDS: VITAMIN B COMP W-C 1 TAB TABLET PO SCH (18:34)
--- NOTE | 2021-10-27 19:06 | NUR ---
MS RN CLOSING NOTE Patient in bed, asleep. A/O x 1. On O2 at 2 LPM via NC, breathing evenly and unlabored. No SOB or s/s of distress noted. IV access on Right wrist #24G, SL intact and patent. GT in place with Jevity 1.2 at 30ml/hr feeding. Safety precautions in place: bed in low, locked position; siderails up x 2; call light within reach. Will endorse to information and referral director nurse for SEMAJ.
--- NOTE | 2021-10-27 19:44 | NUR ---
MS RN OPENING NOTES RECEIVED PT IN BED, ASLEEP, OPENS EYES TO VERBAL STIMULI, FAMILY AT BEDSIDE. AOx1. ON NASAL CANNULA 2L/MIN AND TOLERATING WELL. NO SOB NOTED. NO S/SX OF RESPIRATORY DISTRESS NOTED. IV ACCESS IN R WRIST #24G. IV IS INTACT, PATENT, AND FLUSHING WELL. G-TUBE RUNNING JEVITY 1.2 @30 ML/HR. SAFETY PRECAUTIONS IN PLACE: BED IN LOWEST, LOCKED POSITION, SIDERAILS UPx2, AND BRAKES ON. TABLE AND CALL LIGHT WITHIN REACH. WILL CONTINUE TO MONITOR
[2021-10-27 20:00] VITALS: BP 130/52
[2021-10-27 22:05] LABS: CARBON DIOXIDE 13 mmol/L (21-32); CHLORIDE 114 mmol/L (98-107); CREATININE 1.7 mg/dL (0.6-1.3); GLUCOSE 169 mg/dL (74-106); POTASSIUM 3.2 mmol/L (3.5-5.1); SODIUM SERUM 143 mmol/L (136-145); UREA NITROGEN, BLOOD 27 mg/dL (7-18)
[2021-10-27] MEDS: MIRTAZAPINE 15 MG TABLET PO SCH (22:07)
[2021-10-27] MEDS: AMLODIPINE BESYLATE 5 MG TABLET PO SCH (22:08)
[2021-10-27] MEDS: JEVITY 1.2 CAL 1,000 ML BOTTLE GT SCH (23:27)
[2021-10-28] MEDS: LEVOTHYROXINE SODIUM 88 MCG TABLET PO SCH (06:32)
[2021-10-28] MEDS: BLOOD SUGAR DIAGNOSTIC 1 EACH STRIP IN SCH ×4 (06:44→22:48)
--- NOTE | 2021-10-28 06:48 | NUR ---
MS RN CLOSING NOTES PT IN BED, ASLEEP, OPENS EYES TO VERBAL STIMULI. AOx1. ON NASAL CANNULA 2L/MIN AND TOLERATING WELL. NO SOB NOTED. NO S/SX OF RESPIRATORY DISTRESS NOTED. IV ACCESS IN R WRIST #24G. IV IS INTACT, PATENT, AND FLUSHING WELL. G-TUBE RUNNING JEVITY 1.2 @35 ML/HR. ALL NEEDS MET. PT KEPT CLEAN AND DRY. SAFETY PRECAUTIONS IN PLACE: BED IN LOWEST, LOCKED POSITION, SIDERAILS UPx2, AND BRAKES ON. TABLE AND CALL LIGHT WITHIN REACH. WILL ENDORSE TO ONCOMING SHIFT FOR SEMAJ.
[2021-10-28 06:55] LABS: BASOPHILS % (AUTO) 0.2 % (0.0-2.0); EOSINOPHILS % (AUTO) 0.8 % (0.0-6.0); HEMATOCRIT 25 % (33-45); HEMOGLOBIN 8.5 g/dL (11.5-14.8); LYMPHOCYTES # (AUTO) 1.2 K/uL (0.8-4.8); LYMPHOCYTES % (AUTO) 9.1 % (20.0-44.0); MEAN CORPUSCULAR HGB CONC 34 g/dl (31.0-36.0); MEAN CORPUSCULAR VOLUME 95 fL (82-100); MONOCYTES # (AUTO) 1.1 K/uL (0.1-1.30); MONOCYTES % (AUTO) 8.8 % (2.0-12.0); NEUTROPHILS # (AUTO) 10.4 K/uL (1.8-8.9); NEUTROPHILS % (AUTO) 81.1 % (43.0-81.0); PLATELET COUNT (AUTO) 262 K/uL (150-450); RED BLOOD CELL COUNT(AUTO) 2.64 MIL/uL (4.0-5.2); WHITE BLOOD COUNT (AUTO) 12.8 K/uL (4.3-11.0)
[2021-10-28 07:19] LABS: CALCIUM, SERUM 7.9 mg/dL (8.5-10.1); CARBON DIOXIDE 21 mmol/L (21-32); CHLORIDE 113 mmol/L (98-107); CREATININE 1.4 mg/dL (0.6-1.3); GLUCOSE 99 mg/dL (74-106); MAGNESIUM 1.8 mg/dL (1.8-2.4); PHOSPHORUS 2.9 mg/dL (2.5-4.9); POTASSIUM 3.9 mmol/L (3.5-5.1); SODIUM SERUM 143 mmol/L (136-145); UREA NITROGEN, BLOOD 27 mg/dL (7-18)
[2021-10-28 08:00] VITALS: BP 147/69
[2021-10-28] MEDS: ENSURE ENLIVE 237 ML LIQUID (VANILLA) PO SCH ×3 (08:00→17:59)
--- NOTE | 2021-10-28 08:14 | NUR ---
MS RN OPENING NOTE Patient in bed, asleep. A/O x 1-2. On O2 at 2 LPM via NC, breathing evenly and unlabored. No SOB or s/s of distress noted. IV access on Right wrist #24G, SL intact and patent. GT intact running Jevity 1.2 at 3gml/hr. Safety precautions in place: bed in low, locked position; siderails up x 2; call light within reach. Will continue to monitor. Addendum: 10/28/21 at 1920 by MARY LAW RN CORRECTION: GT feeding Jevity 1.2 at 35 ml/hr.
--- NOTE | 2021-10-28 08:18 | NUR ---
RN NOTE Patient on GT feeding, Ensure not given.
[2021-10-28] MEDS: SODIUM BICARBONATE 650 MG TABLET PEG SCH ×2 (08:36→17:16)
[2021-10-28] MEDS: DORZOLAMIDE OPTH 2% 10 ML BOTTLE EACHEYE SCH ×2 (08:36→17:16)
[2021-10-28] MEDS: MULTIVITAMIN/LUTEIN/MINERALS 1 TAB PO SCH ×2 (08:37→17:16)
[2021-10-28] MEDS: Z GUARD REMEDY 2 OZ OINT TP SCH (08:37)
[2021-10-28] MEDS: CHOLECALCIFEROL 1,000 UNIT TABLET (VIT D3) PO SCH (08:37)
[2021-10-28] MEDS: FOLIC ACID 1 MG TABLET PO SCH (08:37)
[2021-10-28] MEDS: ASPIRIN 81 MG TAB.CHEW PO SCH (08:37)
[2021-10-28] MEDS: ASCORBIC ACID 500 MG TABLET PO SCH ×2 (08:37→17:18)
--- NOTE | 2021-10-28 13:50 | NUR ---
RN NOTE Patient on GT feeding, Ensure not given.
[2021-10-28 16:00] VITALS: BP 147/62
[2021-10-28] MEDS: ATORVASTATIN 10 MG TABLET PO SCH (17:16)
[2021-10-28] MEDS: VITAMIN B COMP W-C 1 TAB TABLET PO SCH (17:16)
[2021-10-28] MEDS: DONEPEZIL 5 MG TABLET PO SCH (17:16)
--- NOTE | 2021-10-28 17:59 | NUR ---
RN NOTE Patient on GT feeding, Ensure not given.
--- NOTE | 2021-10-28 19:12 | NUR ---
MS RN CLOSING NOTE Patient in bed, resting comfortably. A/O x 1-2. Stable on room air, breathing evenly and unlabored. No SOB or s/s of distress noted. IV access on RAC #22G, SL intact and patent. GT intact running Jevity 1.2 at 35 ml/hr. All needs attended to. Due meds given. Safety precautions maintained: bed in low, locked position; siderails up x 2; call light within reach. Will endorse to shift coordinator nurse for SEMAJ.
--- NOTE | 2021-10-28 19:33 | NUR ---
MS RN OPENING NOTES RECEIVED PT IN BED, ASLEEP, OPENS EYES TO VERBAL STIMULI, FAMILY AT BEDSIDE. AOx1. ON NASAL CANNULA 2L/MIN AND TOLERATING WELL. NO SOB NOTED. NO S/SX OF RESPIRATORY DISTRESS NOTED. IV ACCESS IN RAC #22. IV IS INTACT, PATENT, AND FLUSHING WELL. G-TUBE RUNNING JEVITY 1.2 @35 ML/HR. SAFETY PRECAUTIONS IN PLACE: BED IN LOWEST, LOCKED POSITION, SIDERAILS UPx2, AND BRAKES ON. TABLE AND CALL LIGHT WITHIN REACH. WILL CONTINUE TO MONITOR.
[2021-10-28 20:00] VITALS: BP_SYST 124; BP_DIAS 64; BP_DIAS 67
[2021-10-28] MEDS: MIRTAZAPINE 15 MG TABLET PO SCH (22:32)
[2021-10-28] MEDS: AMLODIPINE BESYLATE 5 MG TABLET PO SCH (22:32)
[2021-10-28] MEDS: ENOXAPARIN SODIUM 30 MG/0.3 ML DISP.SYRIN SQ SCH (22:33)
[2021-10-29] MEDS: JEVITY 1.2 CAL 1,000 ML BOTTLE GT SCH (05:59)
[2021-10-29] MEDS: BLOOD SUGAR DIAGNOSTIC 1 EACH STRIP IN SCH ×4 (06:12→22:41)
--- NOTE | 2021-10-29 07:25 | NUR ---
MS RN CLOSING NOTES PT IN BED, ASLEEP, OPENS EYES TO VERBAL STIMULI. AOx1. ON NASAL CANNULA 2L/MIN AND TOLERATING WELL. NO SOB NOTED. NO S/SX OF RESPIRATORY DISTRESS NOTED. IV ACCESS IN RAC #22. IV IS INTACT, PATENT, AND FLUSHING WELL. G-TUBE RUNNING JEVITY 1.2 @40 ML/HR. ALL NEEDS MET. PT KEPT CLEAN AND DRY. SAFETY PRECAUTIONS IN PLACE: BED IN LOWEST, LOCKED POSITION, SIDERAILS UPx2, AND BRAKES ON. TABLE AND CALL LIGHT WITHIN REACH. WILL ENDORSE TO ONCOMING SHIFT FOR SEMAJ.
--- NOTE | 2021-10-29 07:30 | NUR ---
PT RECEIVED RESTING COMFORTABLY IN BED WITH EYES CLOSED. NO S/S OR C/O PAIN OR DISTRESS NOTED. SIDE RAILS UP X2, CALL LIGHT LEFT WITHIN REACH. WILL CONTINUE PLAN OF CARE.
[2021-10-29 07:41] LABS: BASOPHILS # (AUTO) 0.1 K/uL (0.0-0.2); BASOPHILS % (AUTO) 0.4 % (0.0-2.0); EOSINOPHILS % (AUTO) 0.7 % (0.0-6.0); HEMATOCRIT 27 % (33-45); LYMPHOCYTES % (AUTO) 5.7 % (20.0-44.0); MEAN CORPUSCULAR HGB CONC 33 g/dl (31.0-36.0); MEAN CORPUSCULAR VOLUME 98 fL (82-100); MONOCYTES # (AUTO) 1.2 K/uL (0.1-1.30); MONOCYTES % (AUTO) 7.4 % (2.0-12.0); NEUTROPHILS # (AUTO) 14.3 K/uL (1.8-8.9); NEUTROPHILS % (AUTO) 85.8 % (43.0-81.0); PLATELET COUNT (AUTO) 276 K/uL (150-450); WHITE BLOOD COUNT (AUTO) 16.6 K/uL (4.3-11.0)
[2021-10-29 08:04] LABS: CALCIUM, SERUM 8.1 mg/dL (8.5-10.1); CARBON DIOXIDE 18 mmol/L (21-32); CHLORIDE 114 mmol/L (98-107); CREATININE 1.4 mg/dL (0.6-1.3); GLUCOSE 79 mg/dL (74-106); POTASSIUM 3.7 mmol/L (3.5-5.1); SODIUM SERUM 141 mmol/L (136-145); UREA NITROGEN, BLOOD 28 mg/dL (7-18)
[2021-10-29 08:10] VITALS: BP 157/84
[2021-10-29] MEDS: CHOLECALCIFEROL 1,000 UNIT TABLET (VIT D3) PO SCH (08:38)
[2021-10-29] MEDS: ASPIRIN 81 MG TAB.CHEW PO SCH (08:39)
[2021-10-29] MEDS: ASCORBIC ACID 500 MG TABLET PO SCH ×2 (08:39→17:40)
[2021-10-29] MEDS: LEVOTHYROXINE SODIUM 88 MCG TABLET PO SCH (08:39)
[2021-10-29] MEDS: MULTIVITAMIN/LUTEIN/MINERALS 1 TAB PO SCH ×2 (08:39→17:41)
[2021-10-29] MEDS: FOLIC ACID 1 MG TABLET PO SCH (08:39)
[2021-10-29] MEDS: SODIUM BICARBONATE 650 MG TABLET PEG SCH ×2 (08:39→17:40)
[2021-10-29] MEDS: Z GUARD REMEDY 2 OZ OINT TP SCH (08:45)
[2021-10-29] MEDS: DORZOLAMIDE OPTH 2% 10 ML BOTTLE EACHEYE SCH ×2 (08:45→18:11)
[2021-10-29 12:46] LABS: BAND % (MANUAL) 4 % (0.0-5.0); LYMPHOCYTES % (MANUAL) 4 % (16-48); MONOCYTES % (MANUAL) 6 % (0-11.0); MYELOCYTES % 1 % (0-0); NEUTROPHILS % (MANUAL) 85 (42-76)
[2021-10-29 15:52] VITALS: BP 124/58
[2021-10-29] MEDS: VITAMIN B COMP W-C 1 TAB TABLET PO SCH (17:40)
[2021-10-29] MEDS: DONEPEZIL 5 MG TABLET PO SCH (17:40)
[2021-10-29] MEDS: ATORVASTATIN 10 MG TABLET PO SCH (17:41)
--- NOTE | 2021-10-29 19:27 | NUR ---
CHANGE OF SHIFT REPORT PT RESTING COMFORTABLY IN BED. NO S/S OR C/O PAIN OR DISTRESS NOTED. SIDE RAILS UP X2, CALL LIGHT LEFT WITHIN REACH. PT KEPT CLEAN, DRY, AND COMFORTABLE. NO SIGNIFICANT CHANGES SINCE PREVIOUS SHIFT. WILL GIVE REPORT TO MAGEN MOYER.
--- NOTE | 2021-10-29 19:30 | NUR ---
MS RN OPENING NOTE PATIENT STILL AT MRI DURING THE CHANGE OF CARE REPORT.
--- NOTE | 2021-10-29 19:40 | NUR ---
MS RN NOTE PATIENT CAME BACK FROM MRI AT THIS TIME. A/OX4. NO S/S OF APPARENT DISTRESS. DENIES PAIN AT THIS TIME. NO FLUIDS RUNNING AT THIS TIME. CONNECTED TO G-TUBE JEVITY 1.2 RUNNING AT 45 ML/HR. SAFETY IN PLACE. WILL CONTINUE WITH CARE PLAN.
[2021-10-29 20:00] VITALS: BP 133/68
[2021-10-29] MEDS: ENOXAPARIN SODIUM 30 MG/0.3 ML DISP.SYRIN SQ SCH (21:11)
[2021-10-29] MEDS: MIRTAZAPINE 15 MG TABLET PO SCH (22:41)
[2021-10-29] MEDS: AMLODIPINE BESYLATE 5 MG TABLET PO SCH (22:42)
[2021-10-30 06:50] LABS: BASOPHILS % (AUTO) 0.3 % (0.0-2.0); EOSINOPHILS % (AUTO) 0.8 % (0.0-6.0); HEMATOCRIT 25 % (33-45); LYMPHOCYTES % (AUTO) 6.4 % (20.0-44.0); MEAN CORPUSCULAR HGB CONC 32 g/dl (31.0-36.0); MEAN CORPUSCULAR VOLUME 97 fL (82-100); MONOCYTES % (AUTO) 6.3 % (2.0-12.0); NEUTROPHILS # (AUTO) 13.5 K/uL (1.8-8.9); NEUTROPHILS % (AUTO) 86.2 % (43.0-81.0); PLATELET COUNT (AUTO) 304 K/uL (150-450); RED BLOOD CELL COUNT(AUTO) 2.57 MIL/uL (4.0-5.2); WHITE BLOOD COUNT (AUTO) 15.7 K/uL (4.3-11.0)
[2021-10-30] MEDS: BLOOD SUGAR DIAGNOSTIC 1 EACH STRIP IN SCH ×3 (06:53→22:38)
[2021-10-30 06:54] LABS: CALCIUM, SERUM 7.9 mg/dL (8.5-10.1); CREATININE 1.2 mg/dL (0.6-1.3); POTASSIUM 3.5 mmol/L (3.5-5.1)
--- NOTE | 2021-10-30 07:33 | NUR ---
MS RN CLOSING NOTE REPORT GIVEN TO MOHIT FOR CONTINUITY OF CARE.
--- NOTE | 2021-10-30 07:50 | NUR ---
RN OPENING NOTES PATIENT IS IN BED RESTING, AWAKE. A/O X2-3. NO S/S OF PAIN NOTED AT THIS TIME. ON 2L OXYGEN VIA NC, NO DISTRESS OR SHORTNESS OF BREATH NOTED. IV RAC #22G, INTACT AND PATENT. FALL AND SAFETY MEASURES IN PLACE, BED ALARM ON, BED IN LOW AND LOCK POSITION, CALL LIGHT AND TABLE WITHIN EASY REACH, SIDE RAILS UP X2. WILL CONTINUE TO MONITOR.
[2021-10-30 08:27] VITALS: BP 148/62
[2021-10-30] MEDS: ASCORBIC ACID 500 MG TABLET PO SCH ×2 (09:45→18:57)
[2021-10-30] MEDS: MULTIVITAMIN/LUTEIN/MINERALS 1 TAB PO SCH ×2 (09:45→18:56)
[2021-10-30] MEDS: CHOLECALCIFEROL 1,000 UNIT TABLET (VIT D3) PO SCH (09:45)
[2021-10-30] MEDS: SODIUM BICARBONATE 650 MG TABLET PEG SCH ×2 (09:45→18:56)
[2021-10-30] MEDS: ASPIRIN 81 MG TAB.CHEW PO SCH (09:45)
[2021-10-30] MEDS: FOLIC ACID 1 MG TABLET PO SCH (09:45)
[2021-10-30] MEDS: Z GUARD REMEDY 2 OZ OINT TP SCH (09:46)
[2021-10-30] MEDS: DORZOLAMIDE OPTH 2% 10 ML BOTTLE EACHEYE SCH ×2 (09:48→18:58)
[2021-10-30] MEDS: LEVOTHYROXINE SODIUM 88 MCG TABLET PO SCH (09:50)
[2021-10-30] MEDS ORDERED: predniSONE 50 MG TABLET PO SCH (13:00)
[2021-10-30] MEDS ORDERED: predniSONE 20 MG TABLET PO SCH (14:00)
[2021-10-30 15:51] VITALS: BP 147/65
[2021-10-30] MEDS: JEVITY 1.2 CAL 1,000 ML BOTTLE GT SCH (16:25)
[2021-10-30] MEDS: ATORVASTATIN 10 MG TABLET PO SCH (18:56)
[2021-10-30] MEDS: DONEPEZIL 5 MG TABLET PO SCH (18:56)
[2021-10-30] MEDS: VITAMIN B COMP W-C 1 TAB TABLET PO SCH (18:57)
--- NOTE | 2021-10-30 19:00 | NUR ---
DIE MECHANIC OPENING NOTE RECEIVED PT IN BED, AWAKE AND RESTING. , NO SOB OR RESPIRATORY DISTRESS NOTED, NO C/O PAIN AT THIS TIME. RESPIRATIONS EVEN AND UNLABORED. IV ACCESS NOTED IN RIGHT AC G# 22. . NGT IN PLACE, FALL AND SAFETY MEASURES IN PLACE AND MAINTAINED AT ALL TIMES. BED ALARM, BED IN LOW AND LOCKED POSITION, HOB ELEVATED TO SEMI FOWLERS POSITION, CALL LIGHT AND TABLE WITHIN REACH. SIDE RAILS UP X2. WILL CONTINUE WITH PLAN OF CARE.
[2021-10-30 20:00] VITALS: BP 145/70
--- NOTE | 2021-10-30 20:01 | NUR ---
RN CLOSING NOTES PATIENT IS IN BED RESTING, AWAKE. A/O X2-3. NO S/S OF PAIN NOTED AT THIS TIME. ON 2L OXYGEN VIA NC, NO DISTRESS OR SHORTNESS OF BREATH NOTED. IV RAC #22G, INTACT AND PATENT. FALL AND SAFETY MEASURES IN PLACE, BED ALARM ON, BED IN LOW AND LOCK POSITION, CALL LIGHT AND TABLE WITHIN EASY REACH, SIDE RAILS UP X2. WILL ENDORSE TO AUTOMOBILE BRAKE BONDER.
[2021-10-30] MEDS: ENOXAPARIN SODIUM 30 MG/0.3 ML DISP.SYRIN SQ SCH (21:31)
[2021-10-30] MEDS: AMLODIPINE BESYLATE 5 MG TABLET PO SCH (22:39)
[2021-10-30] MEDS: MIRTAZAPINE 15 MG TABLET PO SCH (22:39)
[2021-10-31] MEDS: BLOOD SUGAR DIAGNOSTIC 1 EACH STRIP IN SCH ×4 (06:01→22:12)
[2021-10-31 06:51] LABS: BASOPHILS % (AUTO) 0.4 % (0.0-2.0); EOSINOPHILS % (AUTO) 1.2 % (0.0-6.0); HEMATOCRIT 25 % (33-45); HEMOGLOBIN 8.2 g/dL (11.5-14.8); LYMPHOCYTES # (AUTO) 1.5 K/uL (0.8-4.8); MEAN CORPUSCULAR HGB CONC 33 g/dl (31.0-36.0); MEAN CORPUSCULAR VOLUME 95 fL (82-100); MONOCYTES % (AUTO) 8.7 % (2.0-12.0); NEUTROPHILS # (AUTO) 8.9 K/uL (1.8-8.9); NEUTROPHILS % (AUTO) 76.7 % (43.0-81.0); PLATELET COUNT (AUTO) 363 K/uL (150-450); RED BLOOD CELL COUNT(AUTO) 2.64 MIL/uL (4.0-5.2); WHITE BLOOD COUNT (AUTO) 11.6 K/uL (4.3-11.0)
[2021-10-31 07:25] LABS: CALCIUM, SERUM 7.8 mg/dL (8.5-10.1); CREATININE 1.2 mg/dL (0.6-1.3); POTASSIUM 3.5 mmol/L (3.5-5.1)
--- NOTE | 2021-10-31 07:30 | NUR ---
MS RN OPENING NOTES PATIENT IS IN BED RESTING, AWAKE. A/O X2-3. NO S/S OF PAIN NOTED AT THIS TIME. NO DISTRESS OR SHORTNESS OF BREATH NOTED. IV RAC #22G, INTACT AND PATENT. ON GTUBE FEEDING OF JEVITY 1.2 AT 50 ML/HR. TOLERATING WELL. KEPT HEAD OF THE BED ELEVATED FOR ASPIRATION PRECAUTION.FALL AND SAFETY MEASURES IN PLACE, BED ALARM ON, BED IN LOW AND LOCK POSITION, CALL LIGHT AND TABLE WITHIN EASY REACH, SIDE RAILS UP X2. WILL CONTINUE TO MONITOR.
[2021-10-31 08:00] VITALS: BP 140/70
[2021-10-31] MEDS: LEVOTHYROXINE SODIUM 88 MCG TABLET PO SCH (08:30)
[2021-10-31] MEDS: SODIUM BICARBONATE 650 MG TABLET PEG SCH ×2 (08:49→19:26)
[2021-10-31] MEDS: CHOLECALCIFEROL 1,000 UNIT TABLET (VIT D3) PO SCH (08:49)
[2021-10-31] MEDS: predniSONE 20 MG TABLET PO SCH (08:49)
[2021-10-31] MEDS: FOLIC ACID 1 MG TABLET PO SCH (08:50)
[2021-10-31] MEDS: MULTIVITAMIN/LUTEIN/MINERALS 1 TAB PO SCH ×2 (08:50→19:26)
[2021-10-31] MEDS: ASPIRIN 81 MG TAB.CHEW PO SCH (08:52)
[2021-10-31] MEDS: ASCORBIC ACID 500 MG TABLET PO SCH ×2 (08:52→19:26)
[2021-10-31] MEDS: DORZOLAMIDE OPTH 2% 10 ML BOTTLE EACHEYE SCH ×2 (08:57→19:42)
[2021-10-31] MEDS: Z GUARD REMEDY 2 OZ OINT TP SCH (08:59)
[2021-10-31 16:00] VITALS: BP 140/62
[2021-10-31] MEDS: VITAMIN B COMP W-C 1 TAB TABLET PO SCH (19:26)
[2021-10-31] MEDS: DONEPEZIL 5 MG TABLET PO SCH (19:26)
[2021-10-31] MEDS: ATORVASTATIN 10 MG TABLET PO SCH (19:26)
[2021-10-31 20:00] VITALS: BP 125/67
[2021-10-31] MEDS: ENOXAPARIN SODIUM 30 MG/0.3 ML DISP.SYRIN SQ SCH (21:00)
--- NOTE | 2021-10-31 21:00 | NUR ---
MS RN NOTES HELD LOVENOX FOR BLEEDING AROUND GTUBE SITE.
[2021-10-31] MEDS: JEVITY 1.2 CAL 1,000 ML BOTTLE GT SCH (21:42)
[2021-10-31] MEDS: MIRTAZAPINE 15 MG TABLET PO SCH (22:02)
[2021-10-31] MEDS: AMLODIPINE BESYLATE 5 MG TABLET PO SCH (22:03)
[2021-11-01] MEDS: BLOOD SUGAR DIAGNOSTIC 1 EACH STRIP IN SCH ×4 (05:52→22:15)
--- NOTE | 2021-11-01 06:23 | NUR ---
MS RN CLOSING NOTES PATIENT IS IN BED RESTING, AWAKE. A/O X2-3. NO S/S OF PAIN NOTED AT THIS TIME. NO DISTRESS OR SHORTNESS OF BREATH NOTED. IV RAC #22G, INTACT AND PATENT. ON GTUBE FEEDING OF JEVITY 1.2 AT 60 ML/HR. TOLERATING WELL. KEPT HEAD OF THE BED ELEVATED FOR ASPIRATION PRECAUTION. ALL DUE MEDS GIVEN ORDERED. FALL AND SAFETY MEASURES IN PLACE, BED ALARM ON, BED IN LOW AND LOCK POSITION, CALL LIGHT AND TABLE WITHIN EASY REACH, SIDE RAILS UP X2. WILL ENDORSE INCOMING SHIFT FOR SEMAJ.
[2021-11-01 07:23] LABS: BASOPHILS % (AUTO) 0.2 % (0.0-2.0); HEMATOCRIT 26 % (33-45); HEMOGLOBIN 8.5 g/dL (11.5-14.8); LYMPHOCYTES # (AUTO) 1.6 K/uL (0.8-4.8); LYMPHOCYTES % (AUTO) 9.3 % (20.0-44.0); MEAN CORPUSCULAR HGB CONC 33 g/dl (31.0-36.0); MEAN CORPUSCULAR VOLUME 95 fL (82-100); MONOCYTES # (AUTO) 0.7 K/uL (0.1-1.30); MONOCYTES % (AUTO) 4.2 % (2.0-12.0); NEUTROPHILS # (AUTO) 14.7 K/uL (1.8-8.9); NEUTROPHILS % (AUTO) 86.3 % (43.0-81.0); PLATELET COUNT (AUTO) 441 K/uL (150-450); RED BLOOD CELL COUNT(AUTO) 2.74 MIL/uL (4.0-5.2)
[2021-11-01 07:35] LABS: CALCIUM, SERUM 8.1 mg/dL (8.5-10.1); CARBON DIOXIDE 22 mmol/L (21-32); CHLORIDE 109 mmol/L (98-107); CREATININE 1.3 mg/dL (0.6-1.3); GLUCOSE 151 mg/dL (74-106); POTASSIUM 3.9 mmol/L (3.5-5.1); SODIUM SERUM 139 mmol/L (136-145); UREA NITROGEN, BLOOD 31 mg/dL (7-18)
--- NOTE | 2021-11-01 07:43 | NUR ---
RN-NOTES RECEIVED PATIENT IN BED AWAKE,ALERT,NO ACUTE DISTRESS NOTED G-TUBE INTACT WITH ONGOING G-TUBE FEEDING OF JEVITY1.2 @ 60ML/HR.R AC IV INTACT NO S/S OF COMPLICATION NOTED ON THE SITE. WILL CONT. MONITORING .
[2021-11-01 08:00] VITALS: BP 142/57
[2021-11-01] MEDS: LEVOTHYROXINE SODIUM 88 MCG TABLET PO SCH (08:43)
[2021-11-01] MEDS: MULTIVITAMIN/LUTEIN/MINERALS 1 TAB PO SCH ×2 (09:11→17:00)
[2021-11-01] MEDS: FOLIC ACID 1 MG TABLET PO SCH (09:11)
[2021-11-01] MEDS: ASCORBIC ACID 500 MG TABLET PO SCH ×2 (09:11→16:59)
[2021-11-01] MEDS: ASPIRIN 81 MG TAB.CHEW PO SCH (09:11)
[2021-11-01] MEDS: SODIUM BICARBONATE 650 MG TABLET PEG SCH ×2 (09:11→16:59)
[2021-11-01] MEDS: predniSONE 20 MG TABLET PO SCH (09:11)
[2021-11-01] MEDS: CHOLECALCIFEROL 1,000 UNIT TABLET (VIT D3) PO SCH (09:11)
[2021-11-01] MEDS: Z GUARD REMEDY 2 OZ OINT TP SCH (09:12)
[2021-11-01] MEDS: DORZOLAMIDE OPTH 2% 10 ML BOTTLE EACHEYE SCH ×2 (09:25→17:05)
[2021-11-01 16:00] VITALS: BP 136/59
[2021-11-01] MEDS: DONEPEZIL 5 MG TABLET PO SCH (17:07)
[2021-11-01] MEDS: VITAMIN B COMP W-C 1 TAB TABLET PO SCH (17:07)
[2021-11-01] MEDS: ATORVASTATIN 10 MG TABLET PO SCH (17:07)
--- NOTE | 2021-11-01 18:49 | NUR ---
RN-CLOSING NOTES PATIENT IN BED AWAKE,ALERTX3,NO ACUTE DISTRESS NOTED. G-TUBE INTACT,NO S/S OF COMPLICATION NOTED OR NO BLEEDING NOTED ON THE SITE. G-TUBE FEEDING OF JEVITY1.2 @ 60ML/HR, INFUSING WELL NO RESIDUAL NOTED, WELL TOLERATED. ALL DUE MEDS GIVEN ORDERED . R AC IV LINE INTACT NO S/S OF COMPLICATION NOTED ON THE SITE. REPOSITION Q2HR . ALL NEEDS ATTENDED AND ANTICIPATED.WILL ENDORSE TO INCOMING NURSE FOR CONTINUITY OF CARE.
[2021-11-01 20:58] VITALS: BP 130/60
[2021-11-01] MEDS: MIRTAZAPINE 15 MG TABLET PO SCH (21:03)
[2021-11-01] MEDS: AMLODIPINE BESYLATE 5 MG TABLET PO SCH (21:03)
[2021-11-01] MEDS: ENOXAPARIN SODIUM 30 MG/0.3 ML DISP.SYRIN SQ SCH (21:06)
[2021-11-01] MEDS: JEVITY 1.2 CAL 1,000 ML BOTTLE GT SCH (22:36)
[2021-11-02] MEDS: BLOOD SUGAR DIAGNOSTIC 1 EACH STRIP IN SCH ×4 (06:49→22:05)
--- NOTE | 2021-11-02 06:54 | NUR ---
RN NOTES PT RESTING IN BED, EASILY AROUSABLE TO STIMULI, A/OX2-3. DENIES ANY PAIN AT THIS TIME. NO SOB. IV SITE: R-AC #22 INTACT/PATENT/FLUSHES WELL. GT IN PLACE/PATENT, RESIDUALS 10CC. GTF JEVITY @60ML/HR AND DANNY WELL. NO N/V NOTED. NO ACUTE EVENTS DURING THE SHIFT. SAFETY MEASURES MAINTAINED. ALL NEEDS ATTENDED TO.
--- NOTE | 2021-11-02 07:30 | NUR ---
MS RN OPENING NOTES RECEIVED PATIENT IN BED RESTING, AWAKE. A/O X2-3. NO S/S OF PAIN NOTED AT THIS TIME. NO DISTRESS OR SHORTNESS OF BREATH NOTED, ON ROOM AIR. IV RAC #22G, INTACT AND PATENT. ON G TUBE FEEDING OF JEVITY 1.2 AT 60 ML/HR. TOLERATING WELL, NO RESIDUAL NOTED. KEPT HEAD OF THE BED ELEVATED FOR ASPIRATION PRECAUTION. FALL AND SAFETY MEASURES IN PLACE, BED ALARM ON, BED IN LOW AND LOCK POSITION, CALL LIGHT AND TABLE WITHIN EASY REACH, SIDE RAILS UP X2. WILL CONTINUE TO MONITOR ACCORDINGLY.
[2021-11-02] MEDS: LEVOTHYROXINE SODIUM 88 MCG TABLET PO SCH (07:38)
[2021-11-02 08:00] VITALS: BP 119/58
[2021-11-02] MEDS: ASPIRIN 81 MG TAB.CHEW PO SCH (08:38)
[2021-11-02] MEDS: ASCORBIC ACID 500 MG TABLET PO SCH ×2 (08:39→16:16)
[2021-11-02] MEDS: CHOLECALCIFEROL 1,000 UNIT TABLET (VIT D3) PO SCH (08:39)
[2021-11-02] MEDS: predniSONE 20 MG TABLET PO SCH (08:39)
[2021-11-02] MEDS: MULTIVITAMIN/LUTEIN/MINERALS 1 TAB PO SCH ×2 (08:39→16:16)
[2021-11-02] MEDS: SODIUM BICARBONATE 650 MG TABLET PEG SCH ×2 (08:40→16:16)
[2021-11-02] MEDS: FOLIC ACID 1 MG TABLET PO SCH (08:40)
[2021-11-02] MEDS: DORZOLAMIDE OPTH 2% 10 ML BOTTLE EACHEYE SCH ×2 (08:41→16:17)
[2021-11-02] MEDS: Z GUARD REMEDY 2 OZ OINT TP SCH (08:42)
[2021-11-02 08:47] VITALS: BP 119/58
--- NOTE | 2021-11-02 14:08 | NUR ---
RN NOTES PATIENT'S DAUGHTER IS REQUESTING FOR ANOTHER SWALLOW EVALUATION. INFORMED DR. FINCH. PER DR. FINCH, SWALLOW EVAL CAN BE DONE IN [facility] WELL. PATIENT'S DAUGHTER (PETER) MADE AWARE.
[2021-11-02] MEDS: JEVITY 1.2 CAL 1,000 ML BOTTLE GT SCH (14:51)
[2021-11-02 15:48] VITALS: BP 119/51
[2021-11-02] MEDS: ATORVASTATIN 10 MG TABLET PO SCH (17:12)
[2021-11-02] MEDS: DONEPEZIL 5 MG TABLET PO SCH (17:12)
[2021-11-02] MEDS: VITAMIN B COMP W-C 1 TAB TABLET PO SCH (17:12)
--- NOTE | 2021-11-02 18:29 | NUR ---
MS RN CLOSING NOTES PATIENT IN BED RESTING, AWAKE. A/O X2-3. NO S/S OF PAIN NOTED AT THIS TIME. NO DISTRESS OR SHORTNESS OF BREATH NOTED, ON ROOM AIR. IV RAC #22G, INTACT AND PATENT. ON G TUBE FEEDING OF JEVITY 1.2 AT 60 ML/HR. TOLERATING WELL, NO RESIDUAL NOTED. KEPT HEAD OF THE BED ELEVATED FOR ASPIRATION PRECAUTION. FALL AND SAFETY MEASURES IN PLACE, BED ALARM ON, BED IN LOW AND LOCK POSITION, CALL LIGHT AND TABLE WITHIN EASY REACH, SIDE RAILS UP X2. ALL NEEDS ATTENDED AND MET, DUE MEDS GIVEN ORDERED. WILL ENDORSED TO ONCOMING SHIFT FOR SEMAJ.
--- NOTE | 2021-11-02 19:35 | NUR ---
MS RN OPENING NOTES PATIENT AWAKE IN BED, ALERT/ORIENTED X 2, REORIENTED PATIENT TO DATE/TIME. PT DENIES PAIN AT THIS TIME. PT STABLE ON RA, NO S/S OF DISTRESS OR SOB NOTED, BREATHING EVEN AND UNLABORED. PATIENT ON GT FEEDING, NO RESIDUAL NOTED, RUNNING JEVITY 1.2 @ 60 ML/HR. RIGHT AC #22G INTACT AND FLUSHING WELL. SAFETY MEASURES IN PLACE: CALL LIGHT WITHIN REACH, SIDE RAILS UP X 3, BED LOCKED IN LOW POSITION, HOB ELEVATED, BED ALARM ON. WILL CONTINUE TO MONITOR PATIENT
[2021-11-02 20:00] VITALS: BP 129/57
[2021-11-02] MEDS: MIRTAZAPINE 15 MG TABLET PO SCH (21:30)
[2021-11-02] MEDS: AMLODIPINE BESYLATE 5 MG TABLET PO SCH (21:31)
[2021-11-02] MEDS: ENOXAPARIN SODIUM 30 MG/0.3 ML DISP.SYRIN SQ SCH (21:33)
[2021-11-03] VITALS (7 sets, daily range): BP systolic 121–139; BP diastolic 50–77
[2021-11-03] MEDS: BLOOD SUGAR DIAGNOSTIC 1 EACH STRIP IN SCH ×3 (07:28→17:27)
[2021-11-03] MEDS: JEVITY 1.2 CAL 1,000 ML BOTTLE GT SCH (07:32)
[2021-11-03 07:42] LABS: CALCIUM, SERUM 7.6 mg/dL (8.5-10.1); CARBON DIOXIDE 23 mmol/L (21-32); CHLORIDE 107 mmol/L (98-107); CREATININE 1.5 mg/dL (0.6-1.3); GLUCOSE 111 mg/dL (74-106); POTASSIUM 3.8 mmol/L (3.5-5.1); SODIUM SERUM 139 mmol/L (136-145); UREA NITROGEN, BLOOD 45 mg/dL (7-18)
[2021-11-03 07:44] LABS: BASOPHILS # (AUTO) 0.1 K/uL (0.0-0.2); BASOPHILS % (AUTO) 0.7 % (0.0-2.0); EOSINOPHILS % (AUTO) 0.1 % (0.0-6.0); LYMPHOCYTES # (AUTO) 2.9 K/uL (0.8-4.8); LYMPHOCYTES % (AUTO) 20.4 % (20.0-44.0); MEAN CORPUSCULAR HGB CONC 33 g/dl (31.0-36.0); MEAN CORPUSCULAR VOLUME 97 fL (82-100); MONOCYTES # (AUTO) 1.5 K/uL (0.1-1.30); MONOCYTES % (AUTO) 10.2 % (2.0-12.0); NEUTROPHILS # (AUTO) 9.8 K/uL (1.8-8.9); NEUTROPHILS % (AUTO) 68.6 % (43.0-81.0); PLATELET COUNT (AUTO) 115 K/uL (150-450); WHITE BLOOD COUNT (AUTO) 14.3 K/uL (4.3-11.0)
--- NOTE | 2021-11-03 08:08 | NUR ---
RN OPENING NOTES PATIENT AWAKE IN BED RESTING, AWAKE. A/O X2. NO S/S OF PAIN NOTED AT THIS TIME. ON ROOM AIR, NO DISTRESS OR SHORTNESS OF BREATH NOTED. IV RAC #22G, INTACT AND PATENT. FALL AND SAFETY MEASURES IN PLACE, BED ALARM ON, BED IN LOW AND LOCK POSITION, CALL LIGHT AND TABLE WITHIN EASY REACH, SIDE RAILS UP X2. WILL CONTINUE TO MONITOR.
[2021-11-03 08:21] LABS: RED BLOOD CELL COUNT(AUTO) 1.59 MIL/uL (4.0-5.2)
[2021-11-03 08:23] LABS: HEMATOCRIT 15 % (33-45)
[2021-11-03 08:24] LABS: LYMPHOCYTES % (MANUAL) 26 % (16-48); MONOCYTES % (MANUAL) 12 % (0-11.0); NEUTROPHILS % (MANUAL) 62 (42-76)
[2021-11-03] MEDS: MULTIVITAMIN/LUTEIN/MINERALS 1 TAB PO SCH ×2 (08:33→17:38)
[2021-11-03] MEDS: ASCORBIC ACID 500 MG TABLET PO SCH ×2 (08:33→17:38)
[2021-11-03] MEDS: predniSONE 20 MG TABLET PO SCH (08:33)
[2021-11-03] MEDS: CHOLECALCIFEROL 1,000 UNIT TABLET (VIT D3) PO SCH (08:34)
[2021-11-03] MEDS: ACETAMINOPHEN 325 MG TABLET PO PRN (08:34)
[2021-11-03] MEDS: SODIUM BICARBONATE 650 MG TABLET PEG SCH ×2 (08:34→17:37)
[2021-11-03] MEDS: ASPIRIN 81 MG TAB.CHEW PO SCH (08:34)
[2021-11-03] MEDS: LEVOTHYROXINE SODIUM 88 MCG TABLET PO SCH (08:34)
[2021-11-03] MEDS: FOLIC ACID 1 MG TABLET PO SCH (08:34)
[2021-11-03] MEDS: DORZOLAMIDE OPTH 2% 10 ML BOTTLE EACHEYE SCH ×2 (08:35→17:35)
[2021-11-03] MEDS: Z GUARD REMEDY 2 OZ OINT TP SCH (08:37)
--- NOTE | 2021-11-03 08:54 | NUR ---
RN NOTES PATIENT HAVE A TEMPERATURE OF 99.9, HEMOGLOBIN OF 5 AND HCT OF 15. CHARGE NURSE AND DOCTOR WAS NOTIFIED. DOCTOR ORDER TO REPEAT LABS FOR HGB AND HCT. SATURATION, BLOOD PRESSURE AND PULSE STABLE. WILL CONTINUE TO MONITOR PATIENT.
[2021-11-03 09:40] LABS: HEMOGLOBIN 6.2 g/dL (11.5-14.8)
[2021-11-03] MEDS: PANTOPRAZOLE 40 MG VIAL IV SCH (10:38)
[2021-11-03 15:07] LABS: HEMOGLOBIN 6.2 g/dL (11.5-14.8)
[2021-11-03] MEDS: DONEPEZIL 5 MG TABLET PO SCH (17:37)
[2021-11-03] MEDS: ATORVASTATIN 10 MG TABLET PO SCH (17:38)
[2021-11-03] MEDS: VITAMIN B COMP W-C 1 TAB TABLET PO SCH (17:38)
--- NOTE | 2021-11-03 19:00 | NUR ---
RN CLOSING NOTES PATIENT AWAKE IN BED RESTING, AWAKE. A/O X2. NO S/S OF PAIN NOTED AT THIS TIME. ON ROOM AIR, NO DISTRESS OR SHORTNESS OF BREATH NOTED. IV RAC #22G, INTACT AND PATENT. FALL AND SAFETY MEASURES IN PLACE, BED ALARM ON, BED IN LOW AND LOCK POSITION, CALL LIGHT AND TABLE WITHIN EASY REACH, SIDE RAILS UP X2. WILL ENDORSE TO CO FOUNDER AND CHIEF STRATEGY OFFICER.
[2021-11-03] MEDS: SOD FERRIC GLUC 125 MG in IV NS 0.9% 100 ML IV SCH (19:28)
--- NOTE | 2021-11-03 19:45 | NUR ---
MS RN OPENING NOTES RECEIVED PATIENT AWAKE IN BED RESTING, AWAKE. A/O X2. NO S/S OF PAIN NOTED AT THIS TIME. ON ROOM AIR, NO DISTRESS OR SHORTNESS OF BREATH NOTED. IV RAC G #18 SL L HAND #20G, INTACT AND PATENT. FALL AND SAFETY MEASURES IN PLACE, BED ALARM ON, BED IN LOW AND LOCK POSITION, CALL LIGHT AND TABLE WITHIN EASY REACH, SIDE RAILS UP X2. WILL CONTINUE TO MONITOR.
--- NOTE | 2021-11-03 20:55 | NUR ---
MS RN NOTES STARTED BLOOD TRANSFUSION PATIENT TOLERATING WELL NO SIGNS OF BLEEDING.
--- NOTE | 2021-11-04 | NUR ---
MS RN NOTES BLOOD TRANSFUSION COMPLETED PATIENT TOLERATED WELL. NO SIGNS AND SYMPTOMS OF DISTRESS.
[2021-11-04 00:01] VITALS: BP 139/70
[2021-11-04] MEDS: PANTOPRAZOLE 40 MG VIAL IV SCH ×3 (01:59→21:49)
[2021-11-04] MEDS: AMLODIPINE BESYLATE 5 MG TABLET PO SCH ×2 (02:00→21:55)
[2021-11-04] MEDS: MIRTAZAPINE 15 MG TABLET PO SCH ×2 (02:00→21:48)
[2021-11-04] MEDS: BLOOD SUGAR DIAGNOSTIC 1 EACH STRIP IN SCH ×5 (02:40→21:49)
[2021-11-04] MEDS: JEVITY 1.2 CAL 1,000 ML BOTTLE GT SCH ×2 (03:35→22:07)
[2021-11-04 06:46] LABS: BASOPHILS # (AUTO) 0.1 K/uL (0.0-0.2); BASOPHILS % (AUTO) 0.5 % (0.0-2.0); EOSINOPHILS % (AUTO) 0.1 % (0.0-6.0); HEMATOCRIT 26 % (33-45); HEMOGLOBIN 8.4 g/dL (11.5-14.8); LYMPHOCYTES % (AUTO) 17.1 % (20.0-44.0); MEAN CORPUSCULAR HGB CONC 33 g/dl (31.0-36.0); MEAN CORPUSCULAR VOLUME 95 fL (82-100); MONOCYTES # (AUTO) 2.4 K/uL (0.1-1.30); MONOCYTES % (AUTO) 10.4 % (2.0-12.0); NEUTROPHILS # (AUTO) 16.7 K/uL (1.8-8.9); NEUTROPHILS % (AUTO) 71.9 % (43.0-81.0); PLATELET COUNT (AUTO) 387 K/uL (150-450); RED BLOOD CELL COUNT(AUTO) 2.68 MIL/uL (4.0-5.2); WHITE BLOOD COUNT (AUTO) 23.3 K/uL (4.3-11.0)
--- NOTE | 2021-11-04 07:48 | NUR ---
RN OPENING NOTES PATIENT AWAKE IN BED RESTING, AWAKE. A/O X2. NO S/S OF PAIN NOTED AT THIS TIME. ON ROOM AIR, NO DISTRESS OR SHORTNESS OF BREATH NOTED. IV L HAND #20G, INTACT AND PATENT. FALL AND SAFETY MEASURES IN PLACE, BED ALARM ON, BED IN LOW AND LOCK POSITION, CALL LIGHT AND TABLE WITHIN EASY REACH, SIDE RAILS UP X2. WILL CONTINUE TO MONITOR.
[2021-11-04 07:53] LABS: CALCIUM, SERUM 7.6 mg/dL (8.5-10.1); CARBON DIOXIDE 25 mmol/L (21-32); CHLORIDE 107 mmol/L (98-107); CREATININE 1.4 mg/dL (0.6-1.3); GLUCOSE 110 mg/dL (74-106); POTASSIUM 3.7 mmol/L (3.5-5.1); SODIUM SERUM 138 mmol/L (136-145); UREA NITROGEN, BLOOD 45 mg/dL (7-18)
[2021-11-04 08:00] VITALS: BP 97/51
--- NOTE | 2021-11-04 08:00 | NUR ---
MS RN CLOSING NOTES PATIENT STILL AWAKE IN BED RESTING, AWAKE. A/O X2. NO S/S OF PAIN NOTED AT THIS TIME. ON ROOM AIR, NO DISTRESS OR SHORTNESS OF BREATH NOTED. IV L HAND #20G, INTACT AND PATENT. FALL AND SAFETY MEASURES IN PLACE, BED ALARM ON, BED IN LOW AND LOCK POSITION, CALL LIGHT AND TABLE WITHIN EASY REACH, SIDE RAILS UP X2. WILL ENDORSE SEMAJ TO DAY SHIFT NURSE.
[2021-11-04] MEDS: DORZOLAMIDE OPTH 2% 10 ML BOTTLE EACHEYE SCH ×2 (10:02→18:26)
[2021-11-04] MEDS: Z GUARD REMEDY 2 OZ OINT TP SCH (10:03)
[2021-11-04] MEDS: FOLIC ACID 1 MG TABLET PO SCH (10:03)
[2021-11-04] MEDS: predniSONE 20 MG TABLET PO SCH (10:03)
[2021-11-04] MEDS: ASCORBIC ACID 500 MG TABLET PO SCH ×2 (10:04→18:26)
[2021-11-04] MEDS: SODIUM BICARBONATE 650 MG TABLET PEG SCH ×2 (10:04→18:28)
[2021-11-04] MEDS: MULTIVITAMIN/LUTEIN/MINERALS 1 TAB PO SCH ×2 (10:04→18:26)
[2021-11-04] MEDS: CHOLECALCIFEROL 1,000 UNIT TABLET (VIT D3) PO SCH (10:04)
[2021-11-04] MEDS: LEVOTHYROXINE SODIUM 88 MCG TABLET PO SCH (10:07)
[2021-11-04 13:15] LABS: BAND % (MANUAL) 3 % (0.0-5.0); LYMPHOCYTES % (MANUAL) 20 % (16-48); MONOCYTES % (MANUAL) 7 % (0-11.0); MYELOCYTES % 1 % (0-0); NEUTROPHILS % (MANUAL) 69 (42-76)
[2021-11-04] MEDS: SOD FERRIC GLUC 125 MG in IV NS 0.9% 100 ML IV SCH (14:11)
[2021-11-04 16:00] VITALS: BP 126/59
[2021-11-04] MEDS: ATORVASTATIN 10 MG TABLET PO SCH (18:26)
[2021-11-04] MEDS: DONEPEZIL 5 MG TABLET PO SCH (18:26)
[2021-11-04] MEDS: VITAMIN B COMP W-C 1 TAB TABLET PO SCH (18:26)
--- NOTE | 2021-11-04 19:40 | NUR ---
RN CLOSING NOTES PATIENT AWAKE IN BED RESTING, AWAKE. A/O X2. NO S/S OF PAIN NOTED AT THIS TIME. ON ROOM AIR, NO DISTRESS OR SHORTNESS OF BREATH NOTED. IV L HAND #20G, INTACT AND PATENT. FALL AND SAFETY MEASURES IN PLACE, BED ALARM ON, BED IN LOW AND LOCK POSITION, CALL LIGHT AND TABLE WITHIN EASY REACH, SIDE RAILS UP X2. WILL ENDORSE TO PLASTICS FABRICATOR AND ASSEMBLER.
[2021-11-04 20:00] VITALS: BP 165/72
--- NOTE | 2021-11-04 20:00 | NUR ---
RECEIVED PATIENT IN BED, CALM, NON-VERBAL, STABLE ON ROOM AIR, ALERT/ORIENTED X1, CHANGED PAD, SACRAL REDNESS, PEG TUBE FEEDING, JEVITY 1.2 AT 60 ML/HR, NO RESIDUAL, KEPT HOB ELEVATED, ASPIRATION PRECAUTION, COLLECTED STOOL FOR OB, WILL CONTINUE TO MONITOR.
[2021-11-05 05:36] LABS: OCCULT BLOOD STOOL NEGATIVE (NEGATIVE)
[2021-11-05] MEDS: BLOOD SUGAR DIAGNOSTIC 1 EACH STRIP IN SCH ×3 (06:44→17:11)
--- NOTE | 2021-11-05 07:04 | NUR ---
PATIENT ALERT/AWAKE, CALM, COOPERATIVE WITH CARE, ROOM AIR, NO COMPLAIN OF PAIN, PEG TUBE FEEDING TOLERATED WELL, BM X2, COLLECTED FOR OCCULT BLOOD, ACCUCHECK NO SLIDING SCALE, FOR SWALLOW EVAL TODAY, PT EVAL AND TREATMENT. CONTINUE SUPPORTIVE CARE. FALL PRECAUTION, ASPIRATION PRECAUTION.
--- NOTE | 2021-11-05 07:23 | NUR ---
MS WOODWORK SALVAGE INSPECTOR NOTES PATIENT DISCHARGED TO FACILITY. PATIENT MEDICALLY STABLE. ALL DOCUMENTS READY AND SIGNED BY FAMILY. BELONGINGS ACCOUNTED FOR AND FORM SIGNED WELL. IV ACCESS REMOVED PRIOR TO LEAVING THE UNIT. FACILITY CALLED AND MADE AWARE ABOUT DISCHARGE. PATIENT LEFT THE UNIT VIA GURNEY ACCOMPANIED BY 2 felling machine operator.
--- NOTE | 2021-11-05 08:03 | NUR ---
MS RN OPENING NOTES RECEIVED PATIENT IN BED, AWAKE, A/O X2, CONFUSED. PATIENT ON ROOM AIR; BREATHING EVEN AND UNLABORED AT THIS TIME; NO SOB NOTED. NO COMPLAINS OF PAIN. IV ACCESS AT L HAND G #20 PRESENT AND INTACT; HL. G-TUBE RUNNING JEVITY 1.2 @ 60- MLS/HR. SAFETY PRECAUTIONS IN PLACE; BED IN LOW POSITION AND LOCKED, RAILS UP X2, CALL LIGHT WITHIN REACH. WILL CONTINUE TO MONITOR PATIENT.
[2021-11-05 08:45] LABS: CALCIUM, SERUM 7.8 mg/dL (8.5-10.1); CREATININE 1.3 mg/dL (0.6-1.3)
[2021-11-05 08:46] LABS: BASOPHILS % (AUTO) 0.1 % (0.0-2.0); HEMATOCRIT 29 % (33-45); HEMOGLOBIN 9.5 g/dL (11.5-14.8); LYMPHOCYTES # (AUTO) 3.3 K/uL (0.8-4.8); LYMPHOCYTES % (AUTO) 11.7 % (20.0-44.0); MEAN CORPUSCULAR HGB CONC 33 g/dl (31.0-36.0); MEAN CORPUSCULAR VOLUME 95 fL (82-100); MONOCYTES # (AUTO) 2.6 K/uL (0.1-1.30); NEUTROPHILS # (AUTO) 22.6 K/uL (1.8-8.9); NEUTROPHILS % (AUTO) 79.2 % (43.0-81.0); PLATELET COUNT (AUTO) 422 K/uL (150-450); RED BLOOD CELL COUNT(AUTO) 3.06 MIL/uL (4.0-5.2); WHITE BLOOD COUNT (AUTO) 28.5 K/uL (4.3-11.0)
[2021-11-05] MEDS: MULTIVITAMIN/LUTEIN/MINERALS 1 TAB PO SCH ×2 (08:48→16:45)
[2021-11-05] MEDS: FOLIC ACID 1 MG TABLET PO SCH (08:48)
[2021-11-05] MEDS: SODIUM BICARBONATE 650 MG TABLET PEG SCH ×2 (08:48→16:45)
[2021-11-05] MEDS: CHOLECALCIFEROL 1,000 UNIT TABLET (VIT D3) PO SCH (08:48)
[2021-11-05] MEDS: ASCORBIC ACID 500 MG TABLET PO SCH ×2 (08:48→16:46)
[2021-11-05] MEDS: LEVOTHYROXINE SODIUM 88 MCG TABLET PO SCH (08:49)
[2021-11-05] MEDS: PANTOPRAZOLE 40 MG VIAL IV SCH (08:49)
[2021-11-05] MEDS: DORZOLAMIDE OPTH 2% 10 ML BOTTLE EACHEYE SCH ×2 (08:49→16:46)
[2021-11-05] MEDS: Z GUARD REMEDY 2 OZ OINT TP SCH (08:49)
[2021-11-05 09:19] VITALS: BP 157/66
[2021-11-05 11:53] LABS: BAND % (MANUAL) 4 % (0.0-5.0); LYMPHOCYTES % (MANUAL) 8 % (16-48); METAMYELOCYTES % 1 % (0-0); MONOCYTES % (MANUAL) 4 % (0-11.0); MYELOCYTES % 1 % (0-0); NEUTROPHILS % (MANUAL) 82 (42-76)
[2021-11-05] MEDS ORDERED: predniSONE 20 MG TABLET PO SCH (14:02)
[2021-11-05 15:59] VITALS: BP 135/62
[2021-11-05] MEDS: SOD FERRIC GLUC 125 MG in IV NS 0.9% 100 ML IV SCH (16:03)
--- NOTE | 2021-11-05 16:23 | NUR ---
MS RN NOTES RAPID COVID-19 TEST DONE.
[2021-11-05] MEDS: DONEPEZIL 5 MG TABLET PO SCH (17:20)
[2021-11-05] MEDS: VITAMIN B COMP W-C 1 TAB TABLET PO SCH (17:20)
[2021-11-05] MEDS: ATORVASTATIN 10 MG TABLET PO SCH (17:20)
--- NOTE | 2021-11-05 18:49 | NUR ---
MS RN CLOSING NOTES PATIENT REMAINS IN BED, AWAKE, A/O X2, CONFUSED. PATIENT ON ROOM AIR; BREATHING EVEN AND UNLABORED AT THIS TIME; NO SOB NOTED. NO COMPLAINS OF PAIN. IV ACCESS AT L HAND G #20 PRESENT AND INTACT; HL. G-TUBE RUNNING JEVITY 1.2 @ 60- MLS/HR. PATIENT WAITING FOR THE AMBULANCE VENETIAN BLIND MACHINE OPERATOR FOR DC. ALL PAPERWORK READY AND SIGNED BY FAMILY AT BEDSIDE. ALL NEEDS ATTENDED DURING THE DAY. SAFETY PRECAUTIONS IN PLACE; BED IN LOW POSITION AND LOCKED, RAILS UP X2, CALL LIGHT WITHIN REACH. WILL ENDORSE TO GLOBE TESTER NURSE FOR SEMAJ.
== END 2021-11-05 19:15 | DRG 640 ==
LOC: ER 14:32 → EDBD 20:00 → MED 20:00
PROVIDERS: ADMIT Nurse Practitioner Acute Care; ATTEND Internal Medicine
PROC: 0DH63UZ Insertion of Feeding Device into Stomach, Percutaneous Approach (ICD-10-PCS; principal; 2021-10-26)
PROC: 30233N1 Transfusion of Nonautologous Red Blood Cells into Peripheral Vein, Percutaneous Approach (ICD-10-PCS; 2021-11-03)
DX: R62.7 Adult failure to thrive (principal); N17.0 Acute kidney failure with tubular necrosis; G93.41 Metabolic encephalopathy; E44.0 Moderate protein-calorie malnutrition; E87.2 Acidosis; E87.0 Hyperosmolality and hypernatremia; E86.0 Dehydration; N18.9 Chronic kidney disease, unspecified; Z20.822 Contact with and (suspected) exposure to COVID-19; G30.9 Alzheimer's disease, unspecified; F02.80 Dementia in other diseases classified elsewhere, unspecified severity, without behavioral disturbance, psychotic disturbance, mood disturbance, and anxiety; I70.0 Atherosclerosis of aorta; M06.9 Rheumatoid arthritis, unspecified; Z79.82 Long term (current) use of aspirin; Z79.899 Other long term (current) drug therapy; D64.9 Anemia, unspecified; R13.10 Dysphagia, unspecified; D72.829 Elevated white blood cell count, unspecified; K44.9 Diaphragmatic hernia without obstruction or gangrene; F43.9 Reaction to severe stress, unspecified
CPT/HCPCS: 36415; 43246; 70450-TC; 70551-TC; 71045-TC; 76770-TC; 80048-TC; 80061-TC; 80076-TC; 81001; 82272-TC; 82550-TC; 82962-TC; 83605-TC; 83735-TC; 83880; 84100-TC; 84484-TC; 85025-TC; 85027-TC; 85652-TC; 85730-TC; 86140-TC; 86850-TC; 87040-TC; 87081-TC; 87086-TC; 92526; 92611-TC; 97116-TC; 97530-TC; C9113; C9803; G0378; J0690; J1650; J2405; J2704; J2916; J3490; J7030; J7042; J7050; P9016; U0003